=== PATIENT | male | born 1950 | race African-American/Black ===

== ENCOUNTER 2025-03-01 11:37 | Emergency (ER) | payer MEDICARE, SELFPAY ==
--- OUTSIDE RECORDS SUMMARY | 2025-02-19 15:00 | XMS_ITS | Encounter Summary ---
Author Organization [facility] tem Address [id number] [address] [place] [address] Care Team Providers Care Legal Billing Coordinator Name Role Phone Eduardo Zazueta MD Primary Care Provider [phone] Reason for Referral * Diagnostic Imaging (Routine) - Pending Review Specialty Diagnoses / Procedures Referred By Samina heard Referred To Contact Radiology Diagnoses New onset of headaches after age 50 Procedures MR brain without contrast Devendra Caputo DO [address] [facility] [address], [facility] [place] [address] Phone: tel: fax: Referral ID Status Reason Start Date Expiration Date V isits Requested Visits Authorized [id number] Pending Review 02/19/2025 02/19/2026 1 1 Reason for Visit * Reason Comments Headache throat concerns Encounter Details Date Type Department Care Team (Late st Contact Info) Description 02/19/2025 3:00 PM EDT Office Visit [facility] [address] [place] [phone] Devendra Caputo DO [address] [facility], [facility] [address], [facility] [address] [place] [phone] New onset of headaches after age 50 (Primary Dx); Cough, unspecified type; Cervicalgia; Screening for lipid disorders; Primary hypertension; Hyperlipidemia, unspecified hyperlipidemia type; Hyperglycemia Social History Tobacco Use Types Packs/Day Years Used Date Smoking Tobacco: Never Smokeless Tobacco: Never Alcohol Use Standard Drinks/Week Comments No 1 (1 standard drink = 0.6 oz pur e alcohol) [facility] Utilities Answer Date Recorded In the past 12 months has th e electric, gas, oil, or water company threatened to shut off services in your home? No 12/25/2023 PHQ-2 Answer Date Recorded Total Score 0 02/19/2025 PRAPARE - Transportation Answer Date Re corded In the past 12 months, has l ack of transportation kept you from medical appointments or from getting medications? No 12/04 In the past 12 months, has l ack of transportation kept you from meetings, work, or from getting things needed for daily living? No 12/25/2023 Housing Instability Answer Date Recorde d Are you worried or concerned that in the next two months you may not have stable housing that you own, rent or stay in as a part of a household? No 12/25/2023 Childcare Answer Date Recorded Childcare Unknown 12/08/2018 Employment Answer Date Recorded Employment Unknown 12/08/2018 Hunger Screening Answer Date Recorded Within the past 12 months we worried whether our food would run out before we got money to buy more. Never True 02/19/2025 Within the past 12 months th e food we bought just didn't last and we didn't have money to get more. Never True 02/19/2025 Purpose - Life Answer Date Recorded Purpose and direction in life Unknown Sex and Gender Information Value Date Recorded Sex Assigned at Not on file Legal Sex Male 11:30 AM EDT Gender Identity Not on file Sexual Orientation Not on file documented as of this encounter Last Filed Vital Signs Vital Sign Reading Time Taken Comments Blood Pressure 120/80 02/19/2025 3:11 PM EDT Pulse 77 02/19/2025 3:11 PM EDT Temperature 36.3 C (97.4 F) 02/19/2025 3:11 PM EDT Respiratory Rate - - Oxygen Saturation 97% 02/19/2025 3:11 PM EDT Inhaled Oxygen Concentration - - Weight 78.8 kg (173 lb 12.8 oz) 02/19/2025 3:11 PM EDT Height - - Body Mass Index 26.43 08/23/2024 1:28 PM EST documented in this encounter Progress Notes * Devendra Caputo DO - 02/19/2025 3:00 PM EDT Images from the original note were not included. [facility] [address] [place] [address] [place] [address] Patient: Janes Carranza Date of : 1950 Encounter Date: 02/19/2025 Subjective: Chief Complaint Chief Complaint Patient presents with Headache throat concerns History of Present Illness Janes Carranza is a 74 y.o. male, established patient, that presents to the office for headaches and issues with throat. History provided by patient Headache Headache pattern: New onset of headache located in circular pattern around head x 1 month. Providers seen: None Quality: Pounding Location: Describes as hallow pattern around forehead. Pain escalation timing: Headache present daily. Headache does not wake from sleep but present upon waking. Other thinking/mood changes: Intermittent episdoes of dizziness. 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 Other vision changes: At times will have blurred vision in left eye. Bilateral symptoms: Runny nose Other bilateral symptoms: Pressure sensation temples with pressure sensation in either scientologist of both Stomach/GI changes: Nausea Other stomach/GI changes: Occasional nausea with headache Changes in sensation: Trouble hearing Other sensation changes: Denies any ringing in ears, sensitivity to light, smells, and sound Abortive treatments: He states that advil effective as abortive agent for headaches. Sore Throat This is a new problem. Sore throat worse side: Discomfort midline. There has been no fever. Associated symptoms include headaches, neck pain and swollen glands (He states that when he palpates glandsin neck feel hard). Pertinent negatives include no abdominal pain, diarrhea, hoarse voice, shortness of breath, trouble swallowing or vomiting. Associated symptoms comments: Denies any change in bowel habits . Treatments tried: He states that using syrup water or salt water to help with discomfort. Review of Systems Review of Systems Constitutional: Negative for appetite change and unexpected weight change (Denies any unexpected weight changes). HENT: Positive for sore throat. Negative for hoarse voice and trouble swallowing. He describes sensation of feather in throat with cough. He states that cough productive with white and occasional black phlegm in chest. Denies any pain with swallowing or denies trouble swallowing. Respiratory: Negative for shortness of breath. 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 He himself has never smoked. Gastrointestinal: Negative for abdominal pain, diarrhea and vomiting. Genitourinary: Positive for hematuria (He states that he noticed one episode of pinkish red uirne but stopped after he stoped eating beets). Musculoskeletal: Positive for neck pain. Neurological: Positive for headaches. Vital Signs BP 120/80 (BP Site: Left Arm, BP Postition: Sitting) Pulse 77 Temp 36.3 ??C (97.4 ??F) (Oral) Wt 78.8 kg (173 lb 12.8 oz) SpO2 97% BMI 26.43 kg/m?? Physical Exam Physical Exam Vitals reviewed. Constitutional: General: He is not in acute distress. Appearance: He is not ill-appearing or toxic-appearing. HENT: Head: Normocephalic and atraumatic. Salivary Glands: Right salivary gland is not diffusely enlarged or tender. Left salivary gland is not diffusely enlarged or tender. Right Ear: Tympanic membrane and ear canal normal. Tympanic membrane is not bulging. Left Ear: Tympanic membrane and ear canal normal. Tympanic membrane is not bulging. Nose: Right Sinus: No maxillary sinus tenderness or frontal sinus tenderness. Left Sinus: No maxillary sinus tenderness or frontal sinus tenderness. Mouth/Throat: Lips: [place]. No lesions. Pharynx: Oropharynx is clear. Uvula midline. No pharyngeal swelling, oropharyngeal exudate, posterior oropharyngeal erythema, uvula swelling or postnasal drip. Cardiovascular: Rate and Rhythm: Normal rate and regular rhythm. Heart sounds: No murmur heard. Pulmonary: Effort: Pulmonary effort is normal. No accessory muscle usage or respiratory distress. Breath sounds: No decreased breath sounds, wheezing, rhonchi or rales. Abdominal: General: Bowel sounds are normal. There is no distension. Palpations: Abdomen is soft. Tenderness: There is no abdominal tenderness. Musculoskeletal: Cervical back: Neck supple. Decreased range of motion (decreased active range of motion in rotationto the left and right at 45 degrees and in flexion and extension). Right lower leg: No edema. Left lower leg: No edema. Lymphadenopathy: Cervical: No cervical adenopathy. Neurological: Mental Status: He is alert. Cranial Nerves: No facial asymmetry. Past Medical, Family, Surgery and Social History Past Medical History: Diagnosis Date Alcohol abuse Arthritis Back pain Blindness BPH (benign prostatic hypertrophy) Cataract Bilat Drug abuse ([facility]) GERD (gastroesophageal reflux disease) Hypertension Hypocitraturia PONV (postoperative nausea and vomiting) Renal calculus Sinusitis, chronic Solitary kidney Visual impairment wears glasses, blind in one eye Past Surgical History: Procedure Laterality Date COLONOSCOPY N/A 10/06/2018 Performed by Frank Gipson MD at [facility] CYST REMOVAL CYSTOSCOPY HOLMIUM LASER URETEROSCOPY Left 12/01/2016 Performed by Lavon Sosa MD at [facility] CYSTOSCOPY REMOVAL STENT Left 12/15/2016 Performed by Lavon Sosa MD at [facility] NECK SURGERY Cysts removed PHACO KELMAN I IMPLANT INTRAOCULAR LENS Left 04/21/2017 Performed by Preeti Porter MD at [facility] TONSILLECTOMY With adenoids WRIST SURGERY cysts removed Family History Problem Relation Age of Onset Kidney disease Mother Diabetes Mother Aneurysm Father Stroke Father Social History Socioeconomic History Marital status: Single Spouse name: Not on file Number of children: Not on file Years of education: Not on file Highest education level: Not on file Occupational History Not on file Tobacco Use Smoking status: Never Smokeless tobacco: Never Vaping Use Vaping status: Never Used Substance and Sexual Activity Alcohol use: No Alcohol/week: 1.0 - 2.0 standard drink of alcohol Types: 1 - 2 Cans of beer per week Drug use: Not Currently Types: Cocaine Comment: LAST USE 08/27/17 2100 Sexual activity: Defer Other Topics Concern Caffeine Use Yes Social History Narrative Not on file Social Drivers of Health Financial Resource Strain: Not on file Food Insecurity: No Food Insecurity (02/19/2025) Hunger Screening Food Insecurity - Worry: Never True Food Insecurity - Inability: Never True Transportation Needs: No Transportation Needs (12/25/2023) PRAPARE - Transportation Lack of Transportation (Medical): No Lack of Transportation (Non-Medical): No Physical Activity: Not on file Stress: Not on file Social Connections: Not on file Interpersonal Safety: Not At Risk (12/25/2023) Humiliation, Afraid, Rape, and Kick questionnaire Fear of Current or Ex-Partner: No Emotionally Abused: No Physically Abused: No Sexually Abused: No Housing Instability: Low Risk (12/25/2023) Housing Instability Housing Instability: No Allergies and Current Medications Allergies Allergen Reactions No Known Drug Allergies Current Outpatient Medications on File Prior to Visit Medication Sig carbamide peroxide (DEBROX) 6.5 % otic solution Administer 10 drops to the right ear in the morningand 10 drops before bedtime. carvediloL (COREG) 3.125 mg tablet Take 1 tablet (3.125 mg total) by mouth in the morning and 1 tablet (3.125 mg total) before bedtime. clotrimazole (LOTRIMIN) 1 % cream Apply 1 Application topically in the morning and 1 Application before bedtime. finasteride (PROSCAR) 5 mg tablet Take 1 tablet (5 mg total) by mouth in the morning. glucosamine-chondroitin 500-400 mg tablet Take 1 tablet by mouth in the morning and at bedtime. hydrOXYzine (ATARAX) 25 mg tablet Take 1 tablet (25 mg total) by mouth 3 (three) times a day as needed for anxiety. ibuprofen (MOTRIN) 600 mg tablet Take 1 tablet (600 mg total) by mouth every 6 (six) hours as needed for pain. meloxicam (MOBIC) 15 mg tablet Take 1 tablet (15 mg total) by mouth in the morning. petrolat,wht/min oil/sod chl (DRY EYES OPHT) Instill to eye. propylene glycol (SYSTANE BALANCE OPHT) Instill to eye in the morning and before bedtime. tamsulosin (FLOMAX) 0.4 mg capsule TAKE ONE CAPSULE BY MOUTH ONCE NIGHTLY tiZANidine (ZANAFLEX) 4 mg tablet Take 1 tablet (4 mg total) by mouth every 6 (six) hours as neededfor muscle spasms. No current facility-administered medications on file prior to visit. Labs and Imaging Lab Results Component Value Date WBC 7.8 02/18/2024 HGB 12.5 (L) 02/18/2024 HCT 37.1 (L) 02/18/2024 PLT 194 02/18/2024 CHOL 152 08/27/2021 TRIG 67 08/27/2021 HDL 58 08/27/2021 ALT 17 02/18/2024 AST 19 02/18/2024 K 3.7 02/18/2024 CL 108 02/18/2024 CREATININE 1.55 (H) 02/18/2024 BUN 19 02/18/2024 CO2 27 02/18/2024 TSH 2.79 02/18/2024 PSA 0.92 09/13/2020 INR 1.2 (H) 02/18/2024 HGBA1C 5.6 09/09/2022 MICROALBUR 2.5 (H) 12/01/2017 X-ray abdomen ap 1 view HISTORY: A 73-year-old male with the history of the calculus of the nephrolithiasis. Follow-up examination. TECHNIQUE: Supine abdomen: One view COMPARISON: Comparison is made with prior abdominal radiographs of the 09/07/[address] scan of the abdomen and pelvis of 02/19/2024. FINDINGS: The bowel gas pattern is unremarkable. Both kidneys are obscured by bowel gas shadows andfecal material. No abnormal calcific density seen overlying the kidneys. There are multiple calcific densities in the pelvis bilaterally suggestive of phleboliths. There is no large soft tissue mass. There are degenerative changes in thoracolumbar spine with mild scoliosis. Both hip joints are intact. IMPRESSION: * No calcific calculi are seen in KUB region. There are phleboliths in the pelvis bilaterally. * Nonobstructive bowel gas pattern with significant amount of feces. Finalized by Leander Travis MD on 09/07/2024 6:43 PM Assessment/Plan: 1. New onset of headaches after age 50 - MR brain without contrast; Future - CBC auto differential; Future - Comprehensive metabolic panel; Future - C-reactive protein; Future 2. Cough, unspecified type - X-ray chest 2 views; Future 3. Cervicalgia - Thyroid profile includes TSH FT4; Future - X-ray spine cervical 4 or 5 views; Future 4. Screening for lipid disorders - Lipid panel; Future 5. Primary hypertension - Lipid panel; Future 6. Hyperlipidemia, unspecified hyperlipidemia type - Lipid panel; Future 7. Hyperglycemia - Hemoglobin A1c; Future Essential hypertension Hypertension is controlled and patient tolerating medications. Continue with carvedilol 3.125 mg 1 tablet twice daily for blood pressure control. Ordered comprehensive metabolic panel to monitor electrolytes and kidney function. Cervicalgia Ordered x-ray of cervical spine to evaluate for degree of dysfunction of the cervical spine. Continue with meloxicam 15 mg daily HLD (hyperlipidemia) Lipid abnormalities ordered to evaluate for coronary artery disease prevention Cough Order chest x-ray to evaluate for causes of cough New onset of headaches after age 50 Due to new onset of headache after the age of 48 ordered MRI brain without contrast to rule out mass as cause for headache. Ordered lab work including CBC with diff and C-reactive protein to rule outinflammatory cause for headache and comprehensive metabolic panel to rule out metabolic causes for headache. Follow-up: 2 to 3 weeks new onset headache follow-up - Devendra Caputo DO 02/24/25 10:31 PM documented in this encounter Miscellaneous Notes * Assessment & Plan Note - Devendra Caputo DO - 02/24/2025 10:31 PM EDT Associated Problem(s): New onset of headaches after age 50 Due to new onset of headache after the age of 48 ordered MRI brain without contrast to rule out mass as cause for headache. Ordered lab work including CBC with diff and C-reactive protein to rule outinflammatory cause for headache and comprehensive metabolic panel to rule out metabolic causes for headache. * Assessment & Plan Note - Devendra Caputo DO - 02/24/2025 10:30 PM EDT Associated Problem(s): Cough Order chest x-ray to evaluate for causes of cough * Assessment & Plan Note - Devendra Caputo DO - 02/24/2025 10:29 PM EDT Associated Problem(s): HLD (hyperlipidemia) Lipid abnormalities ordered to evaluate for coronary artery disease prevention * Assessment & Plan Note - Devendra Caputo DO - 02/24/2025 10:28 PM EDT Associated Problem(s): Cervicalgia Ordered x-ray of cervical spine to evaluate for degree of dysfunction of the cervical spine. Continue with meloxicam 15 mg daily * Assessment & Plan Note - Devendra Caputo DO - 02/24/2025 10:23 PM EDT Associated Problem(s): Essential hypertension Hypertension is controlled and patient tolerating medications. Continue with carvedilol 3.125 mg 1 tablet twice daily for blood pressure control. Ordered comprehensive metabolic panel to monitor electrolytes and kidney function. documented in this encounter Plan of Treatment Upcoming Encounters Date Type Department Care Team (Late st Contact Info) Description 03/08/2025 9:00 AM EDT Office Visit [facility] [address] [place] [phone] Devendra Caputo DO [address] [place] [address], [facility], [place], [place] [phone] 03/15/2025 5:15 PM EDT Appointment [facility] - MRI Imaging [address] [place] [phone] 05/17/2025 2:30 PM EST Office Visit [facility] [address] [place] [phone] Eduardo Zazueta MD [address] [place] [phone] Scheduled Orders Name Type Priority Associated Diagnoses Orde r Schedule MR brain without contrast Imaging Routine New onset of headaches after age 50 Expected: 02/19/2025, Expires: 02/19/2026 CBC auto differential Lab Routine New onset of headaches after age 50 1 Occurrences starting 02/19/2025 until 02/19/2026 Comprehensive metabolic panel Lab Routine New onset of headaches after age 50 1 Occurrences starting 02/19/2025 until 02/19/2026 C-reactive protein Lab Routine New onset of headaches after age 50 1 Occurrences starting 02/19/2025 until 02/19/2026 X-ray chest 2 views Imaging Routine Cough, unspecified type Expected: 02/19/2025, Expires: 02/19/2026 Thyroid profile includes TSH FT4 Lab Routine Cervicalgia 1 Occurrences starting 02/19/2025 until 02/19/2026 X-ray spine cervical 4 or 5 views Imaging Routine Cervicalgia Expected: 02/19/2025, Expires: 02/19/2026 Hemoglobin A1c Lab Routine Hyperglycemia 1 Occurrences starting 02/19/2025 until 02/19/2026 Lipid panel Lab Routine Screening for lipid disorders Primary hypertension Hyperlipidemia, unspecified hyperlipidemia type 1 Occurrences starting 02/19/2025 until 02/19/2026 documented as of this encounter Visit Diagnoses Diagnosis New onset of headaches after age 50- Primary Cough, unspecified type Cervicalgia Screening for lipid disorders Primary hypertension Unspecified essential hypertension Hyperlipidemia, unspecified hyperlipidemia type Hyperglycemia Other abnormal glucose documented in this encounter Additional Health Concerns Assessment Noted Time PHQ-9 Depression Total Score: 0 02/20/20 25 3:08 PM EDT A Body Mass Index follow-up plan has been documented for the patient 06/08/2019 1:37 PM EST documented as of this encounter Care Teams Legal Billing Coordinator Relationship Specialty Start Date End Date Eduardo Zazueta MD [address] [facility] [place] [address] PCP - General Internal Medicine 12/25/23 documented as of this encounter
[2025-03-01 11:51] VITALS: BP 140/84; PULSE 65; TEMP 36.3; O2SAT 96; BMI 26.6
--- OUTSIDE RECORDS SUMMARY | 2025-03-01 11:53 | XMS_ITS | Encounter Summary ---
Author Organization [facility] Address [id number] [address] [place] [address] Care Team Providers Care Product Manager E Commerce Name Role Phone Eduardo Zazueta MD Primary Care Provider [phone] Encounter Details Date Type Department Care Team (Late Contact Info) Description 03/31/2023 Telephone [facility] [address] [place] [phone] Amy Mendenhall PA [address] [place] [phone] Social History Tobacco Use Types Packs/Day Years Used Date Smoking Tobacco: Never Smokeless Tobacco: Never Alcohol Use Standard Drinks/Week Comments No 1 (1 standard drink = 0.6 oz pur e alcohol) PHQ-2 Answer Date Recorded Total Score 0 06/08/2019 Childcare Answer Date Recorded Childcare Unknown 12/08/2018 Employment Answer Date Recorded Employment Unknown 12/08/2018 Purpose - Life Answer Date Recorded Purpose and direction in life Unknown Sex and Gender Information Value Date Recorded Sex Assigned at Not on file Legal Sex Male 11:30 AM EDT Gender Identity Not on file Sexual Orientation Not on file documented as of this encounter Miscellaneous Notes * Telephone Encounter - RENÉE Burrell - 03/31/2023 5:58 PM EDT He was a no show. Please call to reschedule documented in this encounter Plan of Treatment Upcoming Encounters Date Type Department Care Team (Late st Contact Info) Description 03/08/2025 9:00 AM EDT Office Visit [facility] [address] [place] [address] [place] [phone] Devendra Caputo, [address] [place] [address] 03/15/2025 5:15 PM EDT Appointment [facility] - MRI Imaging [address] [place] [phone] 05/17/2025 2:30 PM EST Office Visit [facility] [address] [facility] [phone] Eduardo Zazueta MD [address] [place] [address] documented as of this encounter Visit Diagnoses Not on filedocumented in this encounter Additional Health Concerns Assessment Noted Time PHQ-9 Depression Total Score: 0 06/08/20 19 1:00 PM EST A Body Mass Index follow-up plan has been documented for the patient 06/08/2019 1:37 PM EST documented as of this encounter Care Teams Product Manager E Commerce Relationship Specialty Start Date End Date Eduardo Zazueta MD [address] [place] [address] PCP - General Internal Medicine 12/25/23 documented as of this encounter
--- OUTSIDE RECORDS SUMMARY | 2025-03-01 11:53 | XMS_ITS | Encounter Summary ---
Author Organization [facility] tem Address [id number] [address] [place] [address] Care Team Providers Care Certified Master Safe Technician Name Role Phone Eduardo Zazueta MD Primary Care Provider [phone] Reason for Visit * Reason Onset Date Comments Med Refill 11/09/2018 Encounter Details Date Type Department Care Team (Late st Contact Info) Description 11/09/2018 Refill [facility] [address] [place] [address] [place] [address] Dulce Brown CMA Calculus of kidney and ureter Social History Tobacco Use Types Packs/Day Years Used Date Smoking Tobacco: Never Smokeless Tobacco: Never Alcohol Use Standard Drinks/Week Comments No 1 (1 standard drink = 0.6 oz pur e alcohol) Every 6 months PHQ-2 Answer Date Recorded PHQ-2 Score 1 07/12/2018 Childcare Answer Date Recorded Childcare Unknown 09/24/2018 Employment Answer Date Recorded Employment Unknown 09/24/2018 Sex and Gender Information Value Date Recorded Sex Assigned at Not on file Legal Sex Male 11:30 AM EDT Gender Identity Not on file Sexual Orientation Not on file documented as of this encounter Plan of Treatment Upcoming Encounters Date Type Department Care Team (Late st Contact Info) Description 03/08/2025 9:00 AM EDT Office Visit [facility] [address] [place] [place] [address] Devendra Caputo, DO [address] [facility], [address], [place] [address] 03/15/2025 5:15 PM EDT Appointment [facility] - MRI Imaging [address] [place] [address] 05/17/2025 2:30 PM EST Office Visit [facility] [address] [facility] [place] [place] [phone] Eduardo Zazueta MD [address] [facility] [facility] [place], [place] [id number] documented as of this encounter Visit Diagnoses Diagnosis Calculus of kidney and ureter Calculus of kidney documented in this encounter Additional Health Concerns Infection Onset Date Last Indicated Resolved Time COVID-19 Rule-Out 01/17/2022 01/17/2022 01/17/2022 3:46 PM EDT COVID-19 Positive 01/17/2022 01/17/2022 02/07/2022 11:12 PM EDT Assessment Noted Time PHQ-9 Depression Total Score: 1 03/22/20 18 3:00 PM EDT documented as of this encounter Care Teams Certified Master Safe Technician Relationship Specialty Start Date End Date Eduardo Zazueta MD [address] [facility] [address] [place], [place] [phone] PCP - General Internal Medicine 12/25/23 documented as of this encounter
--- OUTSIDE RECORDS SUMMARY | 2025-03-01 11:53 | XMS_ITS | Encounter Summary ---
Author Organization [facility] tem Address [id number] [address] [place] [address] Care Team Providers Care Classroom Aide Name Role Phone Eduardo Zazueta MD Primary Care Provider [phone] Reason for Visit * Reason Onset Date Comments Med Refill 02/23/2019 Encounter Details Date Type Department Care Team (Late st Contact Info) Description 02/23/2019 Refill [facility] [address] [place] [phone] Samantha Sun, [facility] [address] [place] [address] [address] [place] [address] Chronic fatigue Social History Tobacco Use Types Packs/Day Years Used Date Smoking Tobacco: Never Smokeless Tobacco: Never Alcohol Use Standard Drinks/Week Comments No 1 (1 standard drink = 0.6 oz pur e alcohol) Every 6 months PHQ-2 Answer Date Recorded PHQ-2 Score 1 12/12/2018 Childcare Answer Date Recorded Childcare Unknown 12/08/2018 Employment Answer Date Recorded Employment Unknown 12/08/2018 Sex and Gender Information Value Date Recorded Sex Assigned at Not on file Legal Sex Male 11:30 AM EDT Gender Identity Not on file Sexual Orientation Not on file documented as of this encounter Miscellaneous Notes * Telephone Encounter - Cyndi Leija CMA - 02/23/2019 1:10 PM EDT FYI-Patient complains of low back pain, says it feels like a kidney stone, told him to call his urologist Dr Sosa because he wants seen tomorrow, patient agreed. Cyndi Leija CMA 03/02/19 1412 documented in this encounter Plan of Treatment Upcoming Encounters Date Type Department Care Team (Late st Contact Info) Description 03/08/2025 9:00 AM EDT Office Visit [facility] [address] [place] [address] [place] [phone] Devendra Caputo, DO [address], [address] [place] [address] 03/15/2025 5:15 PM EDT Appointment [facility] - MRI Imaging [address] [place] [address] 05/17/2025 2:30 PM EST Office Visit [facility] [address] [place] [phone] Eduardo Zazueta MD [address] [facility] [address] [facility] [place] [address] documented as of this encounter Visit Diagnoses Diagnosis Chronic fatigue Other malaise and fatigue documented in this encounter Additional Health Concerns Infection Onset Date Last Indicated Resolved Time COVID-19 Rule-Out 01/17/2022 01/17/2022 01/17/2022 3:46 PM EDT COVID-19 Positive 01/17/2022 01/17/2022 02/07/2022 11:12 PM EDT Assessment Noted Time PHQ-9 Depression Total Score: 1 03/22/20 18 3:00 PM EDT documented as of this encounter Care Teams Classroom Aide Relationship Specialty Start Date End Date Eduardo Zazueta MD [address] [facility] [address] [place] [address] [facility] [place] [phone] PCP - General Internal Medicine 12/25/23 documented as of this encounter
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
--- OUTSIDE RECORDS SUMMARY | 2025-03-01 11:54 | XMS_ITS | Encounter Summary ---
Author Organization [facility] tem Address [id number] [address] [place] [address] Care Team Providers Care [employer] Name Role Phone Eduardo Zazueta MD Primary Care Provider [phone] Reason for Visit * Reason Onset Date Comments Med Refill 01/11/2019 Encounter Details Date Type Department Care Team (Late st Contact Info) Description 01/11/2019 Refill [facility] [address] [place] [address] [place] [address] Cyndi Leija CMA Essential hypertension Social History Tobacco Use Types Packs/Day Years [...] Encounters Date Type Department Care Team (Late Contact Info) Description 03/08/2025 9:00 AM EDT [facility] [address] [facility] [place] [address] Devendra Caputo, DO [address] [facility] [address] [place] [address] 03/15/2025 5:15 PM EDT Appointment [facility] [address] [place] [address] 05/17/2025 2:30 PM EST Office Visit [facility] [address] [place] [address] Eduardo Zazueta MD [address] [facility] [place] [id number] documented as of this encounter Visit Diagnoses Diagnosis Essential hypertension Unspecified essential hypertension documented in this encounter Additional Health Concerns Infection Onset Date Last Indicated Resolved Time COVID-19 Rule-Out 01/17/2022 01/17/2022 01/17/2022 3:46 PM EDT COVID-19 Positive 01/17/2022 01/17/2022 02/07/2022 11:12 PM EDT Assessment Noted Time PHQ-9 Depression Total Score: 1 03/22/20 18 3:00 PM EDT documented as of this encounter Care Teams [employer] Relationship Specialty Start Date End Date Eduardo Zazueta MD [address] [place] [address] PCP - General Internal Medicine 12/25/23 documented as of this encounter
--- OUTSIDE RECORDS SUMMARY | 2025-03-01 11:54 | XMS_ITS | Encounter Summary ---
Author Organization [employer] Address [facility] [id number] [address] [place] [address] Care Team Providers Care Branch Associate Name Role Phone Eduardo Zazueta MD Primary Care Provider [phone] Reason for Visit * Reason Comments Med Refill Encounter Details Date Type Department Care Team (Late st Contact Info) Description 06/10/2019 Refill [facility] [address] [place] [address] [place] [address] Samantha Sun, AURICULAR DETOXIFICATION SPECIALIST-[facility] [address] [place] [id number] Calculus of kidney and ureter Social History Tobacco Use Types Packs/Day Years Used Date Smoking Tobacco: Never Smokeless Tobacco: Never Alcohol Use Standard Drinks/Week Comments No 1 (1 standard drink = 0.6 oz pur e alcohol) Every 6 months PHQ-2 Answer Date Recorded Total Score 0 [...] Office Visit [facility] [address] [place] [address] [place] [address] Devendra Caputo, DO 605 [facility], [address], [place] [address] 03/15/2025 5:15 PM EDT Appointment [facility] - MRI Imaging [address] [place] [address] 05/17/2025 2:30 PM EST Office Visit [facility] [address] [facility] [place] [address] Eduardo Zazueta MD 605 [facility] [place] [address] documented as of this encounter Visit Diagnoses Diagnosis Calculus of kidney and ureter Calculus of kidney documented in this encounter Additional Health Concerns Infection Onset Date Last Indicated Resolved Time COVID-19 Rule-Out 01/17/2022 01/17/2022 01/17/2022 3:46 PM EDT COVID-19 Positive 01/17/2022 01/17/2022 02/07/2022 11:12 PM EDT Assessment Noted Time PHQ-9 Depression Total Score: 0 06/08/20 1:00 PM EST A Body Mass Index follow-up plan has been documented for the patient 06/08/2019 1:37 PM EST documented as of this encounter Care Teams Branch Associate Relationship Specialty Start Date End Date Eduardo Zazueta MD 605 [facility] [place] [address] PCP - General Internal Medicine 12/25/23 documented as of this encounter
--- OUTSIDE RECORDS SUMMARY | 2025-03-01 11:54 | XMS_ITS | Encounter Summary ---
Author Organization [employer] Address [facility][id number] [address] [place] [address] Care Team Providers Care Director Technical Name Role Phone Eduardo Zazueta MD Primary Care Provider [phone] Reason for Visit * Reason Comments Med Refill Encounter Details Date Type Department Care Team (Late st Contact Info) Description 01/05/2019 Refill [facility] [address] [place] [address] [place] [address] Samantha Sun, WOOD FORM BUILDER-[employer] [address] [facility] [address] [place] [id number] Essential hypertension Social History Tobacco Use Types [...] Office Visit [facility] [address] [place] [address] [place] [address] Devendra Caputo, 605 [facility], [address], [place] [address] 03/15/2025 5:15 PM EDT Appointment [facility] - MRI Imaging [address] [facility] [address] 05/17/2025 2:30 PM EST Office Visit [facility] Family [facility] [address] [place] [address] Eduardo Zazueta MD 605 [facility] Kathy [place], [place] [phone] documented as of this encounter Visit Diagnoses Diagnosis Essential hypertension Unspecified essential hypertension documented in this encounter Additional Health Concerns Infection Onset Date Last Indicated Resolved Time COVID-19 Rule-Out 01/17/2022 01/17/2022 01/17/2022 3:46 PM EDT COVID-19 Positive 01/17/2022 01/17/2022 02/07/2022 11:12 PM EDT Assessment Noted Time PHQ-9 Depression Total Score: 1 03/22/20 18 3:00 PM EDT documented as of this encounter Care Teams Director Technical Relationship Specialty Start Date End Date Eduardo Zazueta MD 605 [facility]NA[facility]ice[place] [place], [place] [phone] PCP - General Internal Medicine 12/25/23 documented as of this encounter
--- OUTSIDE RECORDS SUMMARY | 2025-03-01 11:54 | XMS_ITS | Encounter Summary ---
Author Organization [employer] Address [facility] [place][id number] [address] [place] [address] Care Team Providers Care Renewable Energy Trader Name Role Phone Eduardo Zazueta MD Primary Care Provider [phone] Reason for Visit * Reason Comments Med Refill Encounter Details Date Type Department Care Team (Late st Contact Info) Description 07/12/2019 Refill [facility] [address] [place] [address] [place] [address] Samantha Sun, REAL ESTATE PORTFOLIO MANAGER-[facility] [address] [facility] [address] [place] [id number] Essential hypertension Social History Tobacco Use Types [...] Office Visit [facility] [address] [place] [address] [place] [address] Devendra Caputo DO [address] [place] [address], [address], [place] [address] 03/15/2025 5:15 PM EDT Appointment [facility] - MRI Imaging [address] [facility] [place] [address] 05/17/2025 2:30 PM EST Office Visit [facility] [address] [place] [address] Eduardo Zazueta MD 605 [facility] [address] documented as of this encounter Visit Diagnoses [...] documented as of this encounter Care Teams Renewable Energy Trader Relationship Specialty Start Date End Date Eduardo Zazueta MD 605 [facility] [place] [address] PCP - General Internal Medicine 12/25/23 documented as of this encounter
--- OUTSIDE RECORDS SUMMARY | 2025-03-01 11:54 | XMS_ITS | Clinical Summary ---
Author Organization [facility] Healthcare Address [address] [place] [address] Care Team Providers Care Clinical Research Monitor Name Role Phone Unavailable Primary Care Provider Unavailabl e Social History Tobacco Use Types Packs/Day Years Used Date Smoking Tobacco: Never Assessed Sex and Gender Information Value Date Recorded Sex Assigned at Not on file Legal Sex Male 7:39 PM EDT Gender Identity Not on file Sexual Orientation Not on file Last Filed Vital Signs Vital Sign Reading Time Taken Comments Blood Pressure 125/80 08/29/2019 12:00 PM EST Pulse - - Temperature - - Respiratory Rate - - Oxygen Saturation - - Inhaled Oxygen Concentration - - Weight 77.1 kg (170 lb) 07/16/2022 12:00 PM EST Height 172.7 cm (5' 8 ) 07/16/2022 12:00 PM EST Body Mass Index 25.85 07/16/2022 12:00 PM EST Plan of Treatment Health Maintenance Due Date Last Done Comments Influenza Vaccine (#1) 2025 4, 05/21/2022, 05/27/2021, Additional history exists FIT Discontinued 12/01/2017 Colonoscopy Discontinued 10/06/2018 Colorectal Cancer Screening Discontinued Pneumococcal Vaccine: 65+ Years Completed 06/08/2019, 04/21/2018, 02/24/2018 CT Colonography Discontinued FIT-DNA Discontinued FOBT Discontinued Sigmoidoscopy Discontinued Procedures Procedure Name Priority Date/Time Associated Diagnosis Comments COLONOSCOPY Routine 10/06/2018 12:00 PM EDT from Last 3 Months or Most Recently Relevant to Health Maintenance Results * Colonoscopy (10/06/2018 12:00 PM EDT) Anatomical Region Laterality Modality Endoscopy 10/06/2018 12:0 0 PM EDT Narrative 10/06/2018 12:00 PM EDT PERFORMED AT [facility] LOCATION:[id number] Procedure Note CONVERSION, GENERIC - 11/18/2022 PERFORMED AT [facility] LOCATION:[id number] us Frank Gipson MD ENDOSCOPY PROCEDURE ORDERABL ES Final Result from Last 3 Months or Most Recently Relevant to Health Maintenance Insurance [employer] MEDICARE [employer]VANTAGE
--- OUTSIDE RECORDS SUMMARY | 2025-03-01 11:55 | XMS_ITS | Encounter Summary ---
Author Organization [employer] [facility] tem Address [facility] [id number] [address] [place] [address] Care Team Providers Care Kaiako Kura Tuarua Name Role Phone Eduardo Zazueta MD Primary Care Provider Encounter Details Date Type Department Care Team (Late Contact Info) Description 11/08/2023 Telephone [facility] [address] [place] [address] [address] Annette Villagomez CMA Social History Tobacco Use Types Packs/Day Years [...] got money to buy more. Never True 09/07/2023 Within the past 12 months th e food we bought just didn't last and we didn't have money to get more. Never True 09/07/2023 Purpose - Life Answer Date Recorded Purpose [...] Visit [facility] [address] [place] [address] Devendra Caputo DO 605 [facility], [address], [place] [address] 03/15/2025 5:15 PM EDT Appointment [facility] - MRI Imaging [address] [place] [address] 05/17/2025 2:30 PM EST Office Visit [facility] [address] [place] [address] [place] [address] Eduardo Zazueta MD 605 [place], [place] [phone] documented as of this encounter Visit Diagnoses Not on filedocumented in this encounter Additional Health Concerns Assessment Noted Time PHQ-9 Depression Total Score: 0 06/08/20 19 1:00 PM EST A Body Mass Index follow-up plan has been documented for the patient 06/08/2019 1:37 PM EST documented as of this encounter Care Teams Kaiako Kura Tuarua Relationship Specialty Start Date End Date Eduardo Zazueta MD [address] [place] [phone] PCP - General Internal Medicine 12/25/23 documented as of this encounter
--- OUTSIDE RECORDS SUMMARY | 2025-03-01 11:55 | XMS_ITS | Encounter Summary ---
Author Organization [employer] Address [facility]-[id number] [address] [place] [address] Care Team Providers Care Rehabilitator Name Role Phone Eduardo Zazueta MD Primary Care Provider [phone] Reason for Visit * Reason Onset Date Comments Med Refill 12/27/2019 Encounter Details Date Type Department Care Team (Late st Contact Info) Description 12/27/2019 Refill [facility] [address] [place] [address] Teresa Gandhi CMA Essential hypertension; Calculus of kidney and ureter Social History [...] Office Visit [facility] [address] [place] [address] Devendra Caputo, DO 605 [facility], [facility] B, [place] [phone] 03/15/2025 5:15 PM EDT Appointment [facility] - MRI Imaging [address] [place] [address] 05/17/2025 2:30 PM EST Office Visit [facility] [address] [facility] [address] Eduardo Zazueta MD 605 [place], [place] [phone] documented as of this encounter Visit Diagnoses Diagnosis Essential hypertension Unspecified essential hypertension Calculus of kidney and ureter Calculus of [...] documented as of this encounter Care Teams Rehabilitator Relationship Specialty Start Date End Date Eduardo Zazueta MD 605 [place], [place] [phone] PCP - General Internal Medicine 12/25/23 documented as of this encounter
--- OUTSIDE RECORDS SUMMARY | 2025-03-01 11:55 | XMS_ITS | Encounter Summary ---
Author Organization [employer] Address [facility][id number] [address] [place] [address] Care Team Providers Care Chiropractor Sole Practitioner Name Role Phone Eduardo Zazueta MD Primary Care Provider [phone] Reason for Visit * Reason Comments Med Refill Encounter Details Date Type Department Care Team (Late st Contact Info) Description 07/25/2019 Refill [facility] [address] [place] [address] [place] [address] Samantha Sun, ASSEMBLER BODY-[facility] [address] [place] [id number] Chronic fatigue Social History Tobacco Use Types [...] Office Visit [facility] [address] [place] [address] [place] [address] Devendra Caputo DO [address] [place] [address], [address], [place] [address] 03/15/2025 5:15 PM EDT Appointment [facility] - MRI Imaging [address] [place] [address] 05/17/2025 2:30 PM EST Office Visit [facility] [address] [place] [address] Eduardo Zazueta MD 605 [facility], [place] [phone] documented as of this encounter Visit Diagnoses [...] documented as of this encounter Care Teams Chiropractor Sole Practitioner Relationship Specialty Start Date End Date Eduardo Zazueta MD 605 [facility] Kathy [place], [place] [phone] PCP - General Internal Medicine 12/25/23 documented as of this encounter
--- OUTSIDE RECORDS SUMMARY | 2025-03-01 11:55 | XMS_ITS | Encounter Summary ---
Author Organization [facility] Address [facility]-[id number] [address] [place] [address] Care Team Providers Care Fishing Instructor Name Role Phone Eduardo Zazueta MD Primary Care Provider [phone] Reason for Visit * Reason Comments Med Refill Encounter Details Date Type Department Care Team ([facility] st Contact Info) Description 05/02/2020 Refill [facility] [address] [place] [phone] Samantha Sun APRN-CNP [address] [facility] [address] [place] [phone] Essential hypertension Social History Tobacco Use Types [...] on file Sexual Orientation Not on file COVID-19 Exposure Response Date Recorded In the last month, have you been in contact with someone who was confirmed or suspected to have Coronavirus / COVID-19? No / Unsure 04/17/2020 10:00 AM EDT documented as of this encounter Miscellaneous Notes * Telephone Encounter - FAY Jauregui - 05/02/2020 6:23 AM EDT Patient needs an appointment for additional refills documented in this encounter Plan of Treatment Upcoming Encounters Date Type Department Care Team (Late st Contact Info) Description 03/08/2025 9:00 AM EDT Office Visit [facility] [address] [place] [phone] Devendra Caputo, DO 605 [facility], [address], [place] [address] 03/15/2025 5:15 PM EDT Appointment [facility] - MRI Imaging [address] [place] [address] 05/17/2025 2:30 PM EST [facility] [address] [place] [phone] Eduardo Zazueta MD 605 [place] [address] documented as of this encounter Visit Diagnoses [...] documented as of this encounter Care Teams Fishing Instructor Relationship Specialty Start Date End Date Eduardo Zazueta MD [address] [place] [address] PCP - General Internal Medicine 12/25/23 documented as of this encounter
--- OUTSIDE RECORDS SUMMARY | 2025-03-01 11:55 | XMS_ITS | Encounter Summary ---
Author Organization [employer] Address [id number] [address] [place] [address] Care Team Providers Care Otter Trawler Boatswain Name Role Phone Eduardo Zazueta MD Primary Care Provider [phone] Reason for Visit * Reason Onset Date Comments Med Refill 11/08/2023 Encounter Details Date Type Department Care Team (Late Contact Info) Description 11/08/2023 Refill [facility] [address] [place] [address] Cordelia Haddad CMA Social History Tobacco Use Types Packs/Day [...] Visit [facility] [address] [place] [address] Devendra Caputo, 605 [facility], [address], [facility] [place] [address] 03/15/2025 5:[address] [facility] - MRI Imaging [address] [place] [address] 05/17/2025 2:30 PM EST Office Visit [facility] Medicine [address] [place] [address], [place] [phone] Eduardo Zazueta MD [address] [place] [phone] documented as of this encounter Visit Diagnoses Not on filedocumented in this encounter Additional Health Concerns Assessment Noted Time PHQ-9 Depression Total Score: 0 06/08/20 19 1:00 PM EST A Body Mass Index follow-up plan has been documented for the patient 06/08/2019 1:37 PM EST documented as of this encounter Care Teams Otter Trawler Boatswain Relationship Specialty Start Date End Date Eduardo Zazueta MD [address] [place] [phone] PCP - General Internal Medicine 12/25/23 documented as of this encounter
--- OUTSIDE RECORDS SUMMARY | 2025-03-01 11:55 | XMS_ITS | Encounter Summary ---
Author Organization [employer] Address [facility] [place][id number] [address] [place] [address] Care Team Providers Care Machine Welder Name Role Phone Eduardo Zazueta MD Primary Care Provider [phone] Reason for Visit * Reason Comments Med Refill Encounter Details Date Type Department Care Team (Late st Contact Info) Description 10/10/2019 Refill [facility] [address] [place] [address] Samantha Sun, ELECTRICAL INTEGRATOR-[facility] [address] [place] [address] Essential hypertension Social History Tobacco Use Types [...] have Coronavirus / COVID-19? No / Unsure 09/27/2019 8:13 AM EDT documented as of this encounter Plan of Treatment Upcoming Encounters Date Type Department Care Team ([facility] Contact Info) Description 03/08/2025 9:00 AM EDT Office Visit [facility] [address] [place] [address] [facility] [place] [place] [address] Devendra Caputo, DO 605 [facility], [address], [facility] [place] [address] 03/15/2025 5:15 PM EDT Appointment [facility] - MRI Imaging [address] [place] [address] 05/17/2025 2:30 PM EST Office Visit [facility] Family [facility] [address] [place] [phone] Eduardo Zazueta MD [address] [place] [phone] documented as of this encounter Visit Diagnoses [...] documented as of this encounter Care Teams Machine Welder Relationship Specialty Start Date End Date Eduardo Zazueta MD [address] [place] [address] [facility] [place] [address] PCP - General Internal Medicine 12/25/23 documented as of this encounter
--- OUTSIDE RECORDS SUMMARY | 2025-03-01 11:55 | XMS_ITS | Encounter Summary ---
Author Organization [employer] Address [id number] [address] [place] [address] Care Team Providers Care Drywall Metal Stud Worker Name Role Phone Eduardo Zazueta MD Primary Care Provider [phone] Encounter Details Date Type Department Care Team (Late st Contact Info) Description 05/16/2024 Telephone [employer] [facility] [address] [place] [address] Annette Villagomez CMA Social History Tobacco Use Types Packs/Day Years Used Date Smoking Tobacco: Never Smokeless Tobacco: Never Alcohol Use Standard Drinks/Week Comments No 1 (1 standard drink = 0.6 oz pur e alcohol) [facility] Utilities Answer Date Recorded In the past 12 months has [employer] electric, gas, oil, or water company threatened to shut off services in your home? No 12/25/2023 PHQ-2 Answer Date Recorded Total Score 2 04/26/2024 PRAPARE - Transportation Answer Date Re corded [...] got money to buy more. Never True 04/26/2024 Within the past 12 months th e food we bought just didn't last and we didn't have money to get more. Never True 04/26/2024 Purpose - Life Answer Date Recorded Purpose [...] Description 03/08/2025 9:00 AM EDT Office Visit [facility] Family Medicine [address] [place] [phone] Devendra Caputo, 605 [facility], [address] [address] 03/15/2025 5:15 PM EDT Appointment [facility] - MRI Imaging [address] [place] [address] 05/17/2025 2:30 PM EST Office Visit [facility] Medicine [address] [place] [phone] Eduardo Zazueta MD [address] [place] [address] documented as of this encounter Visit Diagnoses Not on filedocumented in this encounter Additional Health Concerns Assessment Noted Time PHQ-9 Depression Total Score: 2 04/26/20 24 1:00 PM EDT A Body Mass Index follow-up plan has been documented for the patient 06/08/2019 1:37 PM EST documented as of this encounter Care Teams Drywall Metal Stud Worker Relationship Specialty Start Date End Date Eduardo Zazueta MD 605 [place] [address] PCP - General Internal Medicine 12/25/23 documented as of this encounter
--- OUTSIDE RECORDS SUMMARY | 2025-03-01 11:55 | XMS_ITS | Encounter Summary ---
Author Organization [employer] tem Address [facility] [id number]-[id number] [address] [place] [address] Care Team Providers Care Ground Systems Engineer Name Role Phone Eduardo Zazueta MD Primary Care Provider [phone] Reason for Visit * Reason Comments Med Refill Encounter Details Date Type Department Care Team (Late st Contact Info) Description 12/28/2019 Refill [facility] [address] [place] [address] [place] [address] Samantha Sun, DIGITAL ARCHIVIST-[facility] [address] [place] [id number] Essential hypertension Social History Tobacco Use Types [...] Office Visit [facility] [address] [place] [address] [place] [address] Devendra Caputo DO [address] [place] [address], [address], [place] [address] 03/15/2025 5:15 PM EDT Appointment [facility] - MRI Imaging [address] [facility] [place] [address] 05/17/2025 2:30 PM EST Office Visit [facility] Family Medicine [address] [place] [address] Eduardo Zazueta MD 605 [facility] [place] [address] documented as of this encounter Visit Diagnoses [...] documented as of this encounter Care Teams Ground Systems Engineer Relationship Specialty Start Date End Date Eduardo Zazueta MD 605 [facility] [place] [address] PCP - General Internal Medicine 12/25/23 documented as of this encounter
--- OUTSIDE RECORDS SUMMARY | 2025-03-01 11:55 | XMS_ITS | Encounter Summary ---
Author Organization [facility] tem Address [facility]-[id number] [address] [place] [address] Care Team Providers Care Computing Tutor Name Role Phone Eduardo Zazueta MD Primary Care Provider [phone] Reason for Visit * Reason Onset Date Comments Med Refill 09/11/2019 Encounter Details Date Type Department Care Team (Late st Contact Info) Description 09/11/2019 Refill [facility] [address] [place] [address] [place] [address] Teresa Gandhi CMA Calculus of kidney and ureter Social [...] 03/08/2025 9:00 AM EDT [facility] [address] [place] [address] Devendra Caputo, DO 605 [facility], [address], [place] [address] 03/15/2025 5:15 PM EDT Appointment [facility] - MRI Imaging [address] [place] [address] 05/17/2025 2:30 PM EST Office Visit [facility] Family [facility] [address] [place] [address] Eduardo Zazueta MD [address] [facility] Kathy [place], [place] [phone] documented as of this encounter Visit Diagnoses [...] documented as of this encounter Care Teams Computing Tutor Relationship Specialty Start Date End Date Eduardo Zazueta MD 605 [facility] Kathy [place], [place] [phone] PCP - General Internal Medicine 12/25/23 documented as of this encounter
--- OUTSIDE RECORDS SUMMARY | 2025-03-01 11:55 | XMS_ITS | Encounter Summary ---
Author Organization [facility] tem Address [facility][id number] [address] [place] [address] Care Team Providers Care Wood Gluer Name Role Phone Eduardo Zazueta MD Primary Care Provider Encounter Details Date Type Department Care Team (Late Contact Info) Description 07/01/2023 Telephone [facility] [address] [place] [place] [address] Hetal Lerner CMA Social History Tobacco Use Types Packs/Day [...] got money to buy more. Never True 05/10/2023 Within the past 12 months th e food we bought just didn't last and we didn't have money to get more. Never True 05/10/2023 Purpose - Life Answer Date Recorded Purpose [...] Visit [facility] [address] [place] [place] [address] Devendra Caputo, [address], [address] [place], [place] [phone] 03/15/2025 5:15 PM EDT Appointment [facility] - MRI Imaging [address] [facility] [place] [address] 05/17/2025 2:30 PM EST Office Visit [facility] Family Medicine [address] [place] [address] [place] [phone] Eduardo Zazueta MD 605 [place], [place] [phone] documented as of this encounter Visit Diagnoses Not on filedocumented in this encounter Additional Health Concerns Assessment Noted Time PHQ-9 Depression Total Score: 0 06/08/20 19 1:00 PM EST A Body Mass Index follow-up plan has been documented for the patient 06/08/2019 1:37 PM EST documented as of this encounter Care Teams Wood Gluer Relationship Specialty Start Date End Date Eduardo Zazueta MD [address] [place] [address] PCP - General Internal Medicine 12/25/23 documented as of this encounter
--- OUTSIDE RECORDS SUMMARY | 2025-03-01 11:56 | XMS_ITS | Encounter Summary ---
Author Organization [employer] tem Address [facility]-[id number] [address] [place] [address] Care Team Providers Care Grievance And Appeals Specialist Name Role Phone Eduardo Zazueta MD Primary Care Provider [phone] Encounter Details Date Type Department Care Team (Late st Contact Info) Description 11/14/2021 Refill [facility] [address] [place] [address] Isabelle Wu CMA Calculus of kidney and ureter Social [...] Exposure Response Date Recorded In the last 10 days, have yo u been in contact with someone who was confirmed or suspected to have Coronavirus/COVID-19? No / Unsure 11/12/2021 2:14 PM EDT documented as of this encounter Miscellaneous Notes * Telephone Encounter - Isabelle Wu CMA - 11/14/2021 10:31 AM EDT Pt needs refills. * Telephone Encounter - FAY Jauregui - 11/14/2021 10:31 AM EDT Patient needs to call MD that ordered medication last as he has not been seen in this office for 1 year. * Telephone Encounter - Isabelle Wu CMA - 11/14/2021 10:31 AM EDT LEFT DETAILED MESSAGE ~[facility] [place] * Telephone Encounter - FAY Kohli - 11/14/2021 10:31 AM EDT Looks like needs an appt before dara will refill, done this please documented in this encounter Plan of Treatment Upcoming Encounters Date Type Department Care Team (Late st Contact Info) Description 03/08/2025 9:00 AM EDT Office Visit [facility] [address] [place] [address] Devendra Caputo, 605 [facility], [address], [address] [place], [place] [phone] 03/15/2025 5:15 PM EDT Appointment [facility] - MRI Imaging [address] [place] [address] 05/17/2025 2:30 PM EST Office Visit [facility] [address] [place] [address] [place] [address] Eduardo Zazueta MD [address] [place] [phone] documented as of this encounter Visit Diagnoses [...] documented as of this encounter Care Teams Grievance And Appeals Specialist Relationship Specialty Start Date End Date Eduardo Zazueta MD 605 [facility] [place] [address] PCP - General Internal Medicine 12/25/23 documented as of this encounter
--- OUTSIDE RECORDS SUMMARY | 2025-03-01 11:56 | XMS_ITS | Encounter Summary ---
Author Organization [facility] [employer] [facility] tem Address [facility]-[id number] [address] [place] [address] Care Team Providers Care Clinical Psychiatrist Name Role Phone Eduardo Zazueta MD Primary Care Provider [phone] Encounter Details Date Type Department Care Team (Late st Contact Info) Description 08/18/2022 Refill [facility] [address] [place] [address] Annette Villagomez CMA Essential hypertension; Hypertension, unspecified type Social History Tobacco Use Types Packs/Day Years [...] Description 03/08/2025 9:00 AM EDT Office Visit [facility] [address] [place] [address] Devendra Caputo, DO 605 [facility], [address] [place] [address] 03/15/2025 5:15 PM EDT Appointment [facility] - MRI Imaging [address] [place] [address] 05/17/2025 2:30 PM EST Office Visit [facility] Family [facility] [address] [facility] [place] [address] Eduardo Zazueta MD 605 [place], [place] [phone] documented as of this encounter Visit Diagnoses Diagnosis Essential hypertension Unspecified essential hypertension Hypertension, unspecified type documented in this encounter Additional Health Concerns Assessment Noted Time PHQ-9 Depression Total Score: 0 06/08/20 19 1:00 PM EST A Body Mass Index follow-up plan has been documented for the patient 06/08/2019 1:37 PM EST documented as of this encounter Care Teams Clinical Psychiatrist Relationship Specialty Start Date End Date Eduardo Zazueta MD 605 [place], [place] [phone] PCP - General Internal Medicine 12/25/23 documented as of this encounter
--- OUTSIDE RECORDS SUMMARY | 2025-03-01 11:56 | XMS_ITS | Encounter Summary ---
Author Organization [employer] [facility] tem Address [facility]-[id number] [address] [place] [address] Care Team Providers Care Canopy Stringer Name Role Phone Eduardo Zazueta MD Primary Care Provider [phone] Reason for Visit * Reason Onset Date Comments Med Refill 06/24/2020 Encounter Details Date Type Department Care Team (Late st Contact Info) Description 06/24/2020 Refill [facility] [address] [place] [address] [place] [address] Teresa Gandhi CMA Calculus of [...] Description 03/08/2025 9:00 AM EDT [facility] [address] [place] [address] Devendra Caputo, DO 605 [facility], [address] [place] [address] 03/15/2025 5:15 PM EDT Appointment [facility] - MRI Imaging [address] [place] [address] 05/17/2025 2:30 PM EST Office Visit [facility] Family Medicine [address] [facility] [place] [place] [address] Eduardo Zazueta MD 605 [facility] Kathy [place], [place] [phone] documented as of this encounter Visit Diagnoses [...] documented as of this encounter Care Teams Canopy Stringer Relationship Specialty Start Date End Date Eduardo Zazueta MD 605 [facility] Kathy [place], [place] [phone] PCP - General Internal Medicine 12/25/23 documented as of this encounter
--- OUTSIDE RECORDS SUMMARY | 2025-03-01 11:56 | XMS_ITS | Encounter Summary ---
Author Organization [facility] tem Address [facility] [place]-[id number] [address] [place] [address] Care Team Providers Care Technical Writer And Editor Name Role Phone Eduardo Zazueta MD Primary Care Provider [phone] Reason for Visit * Reason Comments Med Refill Encounter Details Date Type Department Care Team (Late Contact Info) Description 11/04/2020 Refill [facility] [address] [place] [phone] Samantha Sun, AIR DRIER MACHINE OPERATOR-[facility] [address] [facility] [address] [place] [id number] Essential hypertension; Hypertension, unspecified type Social History [...] have Coronavirus / COVID-19? No / Unsure 11/05/2020 1:20 PM EDT documented as of this encounter Plan of Treatment Upcoming Encounters Date Type Department Care Team ([facility] Contact Info) Description 03/08/2025 9:00 AM EDT Office Visit [facility] [address] [place] [address] [place] [address] Devendra Caputo DO 605 [facility], [address] [place] [address] 03/15/2025 5:15 PM EDT Appointment [facility] - MRI Imaging [address] [place] [address] 05/17/2025 2:30 PM EST Office Visit [facility] Family Medicine [address] [place] [phone] Eduardo Zazueta MD 605 [place] [address] documented as of this encounter Visit Diagnoses [...] documented as of this encounter Care Teams Technical Writer And Editor Relationship Specialty Start Date End Date Eduardo Zazueta MD [address] [place] [phone] PCP - General Internal Medicine 12/25/23 documented as of this encounter
--- OUTSIDE RECORDS SUMMARY | 2025-03-01 11:56 | XMS_ITS | Encounter Summary ---
Author Organization [employer] tem Address [facility]-[id number] [address] [place] [address] Care Team Providers Care Printed Circuit Layout Taper Name Role Phone Eduardo Zazueta MD Primary Care Provider [phone] Reason for Visit * Reason Onset Date Comments Med Refill 09/13/2018 Encounter Details Date Type Department Care Team (Late st Contact Info) Description 09/13/2018 Refill [facility] [address] [place] [address] Samantha Sun, ASSURANCE SPECIALIST-[facility] [address] [facility] [address] [place], [place] [phone] Social History Tobacco Use Types Packs/Day Years Used Date Smoking Tobacco: Never Smokeless Tobacco: Never Alcohol Use Standard Drinks/Week Comments No 1 (1 standard drink = 0.6 oz pur e alcohol) Every 6 months PHQ-2 Answer Date Recorded PHQ-2 Score 1 07/12/2018 Sex and Gender Information Value Date Recorded Sex Assigned at Not on file Legal Sex Male 11:30 AM EDT Gender Identity Not on file Sexual Orientation Not on file documented as of this encounter Plan of Treatment Upcoming Encounters Date Type Department Care Team (Late st Contact Info) Description 03/08/2025 9:00 AM EDT Office Visit [facility] [address] [place] [address] Devendra Caputo, DO 605 [facility], [address], [facility] [place] [address] 03/15/2025 5:15 PM EDT Appointment [facility] - MRI Imaging [address] [place] [address] 05/17/2025 2:30 PM EST Office Visit [facility] Family [facility] [address] [place] [place] [address] Eduardo Zazueta MD [address] [place], [place] [phone] documented as of this encounter Visit Diagnoses Not on filedocumented in this encounter Additional Health Concerns Infection Onset Date Last Indicated Resolved Time COVID-19 Rule-Out 01/17/2022 01/17/2022 01/17/2022 3:46 PM EDT COVID-19 Positive 01/17/2022 01/17/2022 02/07/2022 11:12 PM EDT Assessment Noted Time PHQ-9 Depression Total Score: 1 03/22/20 18 3:00 PM EDT documented as of this encounter Care Teams Printed Circuit Layout Taper Relationship Specialty Start Date End Date Eduardo Zazueta MD 605 [place], [place] [phone] PCP - General Internal Medicine 12/25/23 documented as of this encounter
--- OUTSIDE RECORDS SUMMARY | 2025-03-01 11:56 | XMS_ITS | Encounter Summary ---
Author Organization [facility] [employer] tem Address [facility]-[id number] [address] [place] [address] Care Team Providers Care Charge Master Analyst Name Role Phone Eduardo Zazueta MD Primary Care Provider [phone] Reason for Visit * Reason Onset Date Comments Med Refill 02/14/2025 Encounter Details Date Type Department Care Team (Late st Contact Info) Description 02/14/2025 Refill [facility] [address] [place] [address] [place] [address] Scarlett Rodney CNA Social History Tobacco Use Types Packs/Day Years Used Date Smoking Tobacco: Never Smokeless Tobacco: Never Alcohol Use Standard Drinks/Week Comments No 1 (1 standard drink = 0.6 oz pur e alcohol) [facility] Utilities Answer Date Recorded In the past [...] got money to buy more. Never True 10/02/2024 Within the past 12 months th e food we bought just didn't last and we didn't have money to get more. Never True 10/02/2024 Purpose - Life Answer Date Recorded Purpose [...] Description 03/08/2025 9:00 AM EDT Office Visit [facility] [address] [place] [phone] Devendra Caputo, 605 [facility], [address], [facility] [place] [address] 03/15/2025 5:15 PM EDT Appointment [facility] - MRI Imaging [address] [place] [address] 05/17/2025 2:30 PM EST Office Visit [facility] Family Medicine [address] [place] [address] Eduardo Zazueta MD 605 [place] [address] documented as of this encounter Visit Diagnoses Not on filedocumented in this encounter Additional Health Concerns Assessment Noted Time PHQ-9 Depression Total Score: 2 04/26/20 24 1:00 PM EDT A Body Mass Index follow-up plan has been documented for the patient 06/08/2019 1:37 PM EST documented as of this encounter Care Teams Charge Master Analyst Relationship Specialty Start Date End Date Eduardo Zazueta MD 605 [place] [address] PCP - General Internal Medicine 6/22/24 documented as of this encounter
--- OUTSIDE RECORDS SUMMARY | 2025-03-01 11:56 | XMS_ITS | Encounter Summary ---
Author Organization [employer] [facility] tem Address [facility]-[id number] [address] [place] [address] Care Team Providers Care Analysis Intern Name Role Phone Eduardo Zazueta MD Primary Care Provider [phone] Reason for Visit * Reason Onset Date Comments Med Refill 04/13/2018 Encounter Details Date Type Department Care Team (Late st Contact Info) Description 04/13/2018 Refill [facility] [address] [place] [phone] Samantha Sun APRN-CNP [address] [place] [address] Social History Tobacco Use Types Packs/Day Years Used Date Smoking Tobacco: Never Smokeless Tobacco: Never Alcohol Use Standard Drinks/Week Comments No 1 (1 standard drink = 0.6 oz pur e alcohol) Every 6 months Sex and Gender Information Value Date Recorded Sex Assigned at Not on file Legal Sex Male 11:30 AM EDT Gender Identity Not on file Sexual Orientation Not on file documented as of this encounter Miscellaneous Notes * Telephone Encounter - FAY Jauregui - 04/13/2018 1:47 PM EDT This was not ordered by this provider. Patient will need an appointment to have refill from this provider. documented in this encounter Plan of Treatment Upcoming Encounters Date Type Department Care Team (Late st Contact Info) Description 03/08/2025 9:00 AM EDT Office Visit [facility] [address] [place] [phone] Devendra Caputo, 605 [facility], [address], [facility] [place] [address] 03/15/2025 5:15 PM EDT Appointment [facility] - MRI Imaging [address] [place] [address] 05/17/2025 2:30 PM EST Office Visit [facility] [address] [place] [address] [place] [phone] Eduardo Zazueta MD 605 [place], [place] [phone] documented as of this encounter Visit Diagnoses Not on filedocumented in this encounter Additional Health Concerns Infection Onset Date Last Indicated Resolved Time COVID-19 Rule-Out 01/17/2022 01/17/2022 01/17/2022 3:46 PM EDT COVID-19 Positive 01/17/2022 01/17/2022 02/07/2022 11:12 PM EDT Assessment Noted Time PHQ-9 Depression Total Score: 1 03/22/20 18 3:00 PM EDT documented as of this encounter Care Teams Analysis Intern Relationship Specialty Start Date End Date Eduardo Zazueta MD [address] [place] [address] [place], [place] [phone] PCP - General Internal Medicine 12/25/23 documented as of this encounter
--- OUTSIDE RECORDS SUMMARY | 2025-03-01 11:56 | XMS_ITS | Patient Health Record ---
Author Organization [facility] Address [address] [place] [address] Care Team Providers Care Patrol Inspector Name Role Phone None, Unknown or Primary Care Provider Unavailab le Reason For Referral No Information Plan Of Treatment No Information Insurance Providers Payer Name Payer Address Payer Phone Subscriber Number Group Number Insured Name Patient Relationship to Insured Coverage Start Date Coverage End Date [employer] MEDICARE ADV PLAN [address] [address] [place] [address] [id number] Janes Carranza Self - patient is the insured 9 [place]IC[place] [address] [place] [address] [id number] Janes Carranza Self - patient is the insured 5 8
--- OUTSIDE RECORDS SUMMARY | 2025-03-01 11:56 | XMS_ITS | Encounter Summary ---
Author Organization [facility] [employer] [facility] Address [facility]-[id number] [address] [place] [address] Care Team Providers Care Retail Reset Merchandiser Name Role Phone Eduardo Zazueta MD Primary Care Provider [phone] Reason for Visit * Reason Comments Med Refill Encounter Details Date Type Department Care Team (Late Contact Info) Description 09/15/2022 Refill [facility] [address] [place] [phone] Amarilys Peraza, BID WRITER-PACKAGE SEALER [address], [place], [place] [phone] Essential hypertension; Hypertension, unspecified type Social History [...] have Coronavirus / COVID-19? No / Unsure 09/09/2022 7:55 AM EST documented as of this encounter Plan of Treatment Upcoming Encounters Date Type Department Care Team (Late Contact Info) Description 03/08/2025 9:00 AM EDT Office Visit [facility] Family Medicine [address] [place] [phone] Devendra Caputo, [address], [address], [place] [address] 03/15/2025 5:15 PM EDT Appointment [facility] - MRI Imaging [address] [place] [address] 05/17/2025 2:30 PM EST Office Visit [facility] Family Medicine [address] [place] [address] [place] [phone] Eduardo Zazueta MD 605 [place] [address] documented as of this encounter Visit Diagnoses Diagnosis Essential hypertension Unspecified essential hypertension Hypertension, unspecified type documented in this encounter Additional Health Concerns Assessment Noted Time PHQ-9 Depression Total Score: 0 06/08/20 19 1:00 PM EST A Body Mass Index follow-up plan has been documented for the patient 06/08/2019 1:37 PM EST documented as of this encounter Care Teams Retail Reset Merchandiser Relationship Specialty Start Date End Date Eduardo Zazueta MD 605 [place] [address] PCP - General Internal Medicine 12/25/23 documented as of this encounter
--- OUTSIDE RECORDS SUMMARY | 2025-03-01 11:56 | XMS_ITS | Encounter Summary ---
Author Organization [facility] tem Address [facility][id number] [address] [place] [address] Care Team Providers Care Asian Studies Professor Name Role Phone Eduardo Zazueta MD Primary Care Provider [phone] Reason for Visit * Reason Onset Date Comments Med Refill 05/12/2018 Encounter Details Date Type Department Care Team (Late st Contact Info) Description 05/12/2018 Refill [facility] [address] [place] [address] [place] [address] Elis Chaves RMA Encounter for medical examination to establish care; Calculus of kidney and ureter; Acute right-sided back pain with sciatica Social History Tobacco Use Types Packs/Day Years [...] Description 03/08/2025 9:00 AM EDT Office [facility] [address] [place] [address] [place] [address] Devendra Caputo, DO 605 [facility], [address] [place] [address] 03/15/2025 5:15 PM EDT Appointment [facility] - MRI Imaging [address] [place] [address] 05/17/2025 2:30 PM EST Office Visit [facility] [address] [place] [address] Eduardo Zazueta MD [address] [place] [address] documented as of this encounter Visit Diagnoses Diagnosis Encounter for medical examination to establish care Calculus of kidney and ureter Calculus of kidney Acute right-sided back pain with sciatica documented in this encounter Additional Health Concerns Infection Onset Date Last Indicated Resolved Time COVID-19 Rule-Out 01/17/2022 01/17/2022 01/17/2022 3:46 PM EDT COVID-19 Positive 01/17/2022 01/17/2022 02/07/2022 11:12 PM EDT Assessment Noted Time PHQ-9 Depression Total Score: 1 03/22/20 18 3:00 PM EDT documented as of this encounter Care Teams Asian Studies Professor Relationship Specialty Start Date End Date Eduardo Zazueta MD [address] [facility] Kathy [place], [place] [phone] PCP - General Internal Medicine 12/25/23 documented as of this encounter
--- OUTSIDE RECORDS SUMMARY | 2025-03-01 11:56 | XMS_ITS | Encounter Summary ---
Author Organization [facility] Sy tem Address [facility] [place][id number] [address] [place] [address] Care Team Providers Care Financial Director Name Role Phone Eduardo Zazueta MD Primary Care Provider [phone] Reason for Visit * Reason Comments Med Refill Encounter Details Date Type Department Care Team (Late st Contact Info) Description 06/22/2020 Refill [facility] [address] [place] [address] Samantha Sun, BUCKLE ATTACHING MACHINE OPERATOR-[facility] [address] [place] [id number] Essential hypertension; Hypertension, unspecified type Social History [...] Visit [facility] [address] [place] [address] Devendra Caputo, DO 605 [facility], [address], [place] [address] 03/15/2025 5:15 PM EDT Appointment [facility] - MRI Imaging [address] [place] [address] 05/17/2025 2:30 PM EST Office Visit [facility] [address] [place] [phone] Eduardo Zazueta MD [address] [place] [address] documented as of this encounter Visit Diagnoses [...] documented as of this encounter Care Teams Financial Director Relationship Specialty Start Date End Date Eduardo Zazueta MD [address] [facility] [place] [address] PCP - General Internal Medicine 12/25/23 documented as of this encounter
--- OUTSIDE RECORDS SUMMARY | 2025-03-01 11:56 | XMS_ITS | Encounter Summary ---
Author Organization [facility] Sys tem Address [facility] [place] [facility] [id number] [address] [place] [address] Care Team Providers Care Kitchen Work Supervisor Name Role Phone Eduardo Zazueta MD Primary Care Provider [phone] Reason for Visit * Reason Onset Date Comments Med Refill 06/08/2018 Encounter Details Date Type Department Care Team (Late st Contact Info) Description 06/08/2018 Refill [facility] [address] [place] [phone] Elis Chaves RMA Calculus of kidney and ureter; Encounter for medical examination to establish care Social History Tobacco Use Types Packs/Day Years [...] * Telephone Encounter - FAY Jauregui - 06/08/2018 9:56 AM EST Patient needs an appointment * Telephone Encounter - MARVIN Tatum - 06/08/2018 9:56 AM EST Pt has appt on 06/13/18 documented in this encounter Plan of Treatment Upcoming Encounters Date Type Department Care Team (Late st Contact Info) Description 03/08/2025 9:00 AM EDT Office Visit [facility] [address] [place] [phone] Devendra Caputo, [address], [address], [place] [address] 03/15/2025 5:15 PM EDT Appointment [facility] - MRI Imaging [address] [place] [address] 05/17/2025 2:30 PM EST Office Visit [facility] [address] [facility] [place] [phone] Eduardo Zazueta MD 605 [place], [place] [phone] documented as of this encounter Visit Diagnoses Diagnosis Calculus of kidney and ureter Calculus of kidney Encounter for medical examination to establish care documented in this encounter Additional Health Concerns Infection Onset Date Last Indicated Resolved Time COVID-19 Rule-Out 01/17/2022 01/17/2022 01/17/2022 3:46 PM EDT COVID-19 Positive 01/17/2022 01/17/2022 02/07/2022 11:12 PM EDT Assessment Noted Time PHQ-9 Depression Total Score: 1 03/22/20 18 3:00 PM EDT documented as of this encounter Care Teams Kitchen Work Supervisor Relationship Specialty Start Date End Date Eduardo Zazueta MD [address] [place], [place] [phone] PCP - General Internal Medicine 12/25/23 documented as of this encounter
--- OUTSIDE RECORDS SUMMARY | 2025-03-01 11:56 | XMS_ITS | Encounter Summary ---
Author Organization [facility] tem Address [facility] [id number] [address] [place] [address] Care Team Providers Care Printing Press Operator Name Role Phone Eduardo Zazueta MD Primary Care Provider [phone] Encounter Details Date Type Department Care Team (Late st Contact Info) Description 04/16/2022 Refill [facility] [address] [place] [phone] Enid James CMA Essential hypertension Social History Tobacco Use [...] * Telephone Encounter - FAY Jauregui - 04/16/2022 9:36 AM EDT A 14 day refill was sent to the pharmacy 3 days ago- Patient needs an appointment for additional medication. documented in this encounter Plan of Treatment Upcoming Encounters Date Type Department Care Team (Late st Contact Info) Description 03/08/2025 9:00 AM EDT Office Visit [facility] [address] [place] [phone] Devendra Caputo, 605 [facility], [address], [place] [address] 03/15/2025 5:15 PM EDT Appointment [facility] - MRI Imaging [address] [place] [address] 05/17/2025 2:30 PM EST Office Visit [facility] [address] [place] [address] [place] [phone] Eduardo Zazueta MD [address] [place] [address] documented as of this encounter Visit Diagnoses Diagnosis Essential hypertension Unspecified essential hypertension documented in this encounter Additional Health Concerns Assessment Noted Time PHQ-9 Depression Total Score: 0 06/08/20 19 1:00 PM EST A Body Mass Index follow-up plan has been documented for the patient 06/08/2019 1:37 PM EST documented as of this encounter Care Teams Printing Press Operator Relationship Specialty Start Date End Date Eduardo Zazueta MD [address] [place] [address] PCP - General Internal Medicine 12/25/23 documented as of this encounter
--- OUTSIDE RECORDS SUMMARY | 2025-03-01 11:56 | XMS_ITS | Encounter Summary ---
Author Organization [facility] tem Address [facility] [place] [place][id number] [address] [place] [address] Care Team Providers Care Squeegee Finisher Name Role Phone Eduardo Zazueta MD Primary Care Provider [phone] Reason for Visit * Reason Comments Med Refill Encounter Details Date Type Department Care Team (Late st Contact Info) Description 11/02/2020 Refill [facility] [address] [place] [phone] Samantha Sun APRN-CNP [address] [facility] [address] [place] [id number] Essential hypertension Social History Tobacco Use Types [...] * Telephone Encounter - FAY Jauregui - 11/02/2020 6:54 AM EDT Patient needs to schedule an appointmemt. A 30-day supply of medication has been sent to the pharmacy to allow for him to schedule in the next 4 weeks documented in this encounter Plan of Treatment Upcoming Encounters Date Type Department Care Team (Late st Contact Info) Description 03/08/2025 9:00 AM EDT [facility] [address] [place] [address] [place] [address] Devendra Caputo, DO 605 [facility], [address], [place] [address] 03/15/2025 5:15 PM EDT Appointment [facility] - MRI Imaging [address] [place] [address] 05/17/2025 2:30 PM EST Office Visit [facility] [address] [place] [address] [place] [address] Eduardo Zazueta MD [address] [place] [address] [facility] [place] [address] documented as of this encounter Visit Diagnoses [...] documented as of this encounter Care Teams Squeegee Finisher Relationship Specialty Start Date End Date Eduardo Zazueta MD [address] [place] [address] FARAZ BERNAL [facility] [place], [place] [phone] PCP - General Internal Medicine 12/25/23 documented as of this encounter
--- OUTSIDE RECORDS SUMMARY | 2025-03-01 11:56 | XMS_ITS | Encounter Summary ---
Author Organization [employer] Sys tem Address [facility] [id number] [address] [place] [address] Care Team Providers Care Bushel Girl Name Role Phone Eduardo Zazueta MD Primary Care Provider [phone] Reason for Visit * Reason Comments Med Refill Encounter Details Date Type Department Care Team (Late Contact Info) Description 11/27/2022 Refill [facility] [address] [place] [address] [place] [address] Samantha Sun, [facility] [address] [place] [phone] Calculus of kidney and ureter Social History [...] Upcoming Encounters Date Type Department Care Team ([facility] Contact Info) Description 03/08/2025 9:00 AM EDT Office Visit [facility] [address] [place] [address] Devendra Caputo, DO 605 [facility], [address], [facility] [place] [address] 03/15/2025 5:15 PM EDT Appointment [facility] - MRI Imaging [address] [place] [address] 05/17/2025 2:30 PM EST Office Visit [facility] [address] [facility] [place] [address] Eduardo Zazueta MD [address] [place] [address] documented as of this encounter Visit Diagnoses Diagnosis Calculus of kidney and ureter Calculus of kidney documented in this encounter Additional Health Concerns Assessment Noted Time PHQ-9 Depression Total Score: 0 06/08/20 19 1:00 PM EST A Body Mass Index follow-up plan has been documented for the patient 06/08/2019 1:37 PM EST documented as of this encounter Care Teams Bushel Girl Relationship Specialty Start Date End Date Eduardo Zazueta MD [address] [place] [address] PCP - General Internal Medicine 12/25/23 documented as of this encounter
--- OUTSIDE RECORDS SUMMARY | 2025-03-01 11:56 | XMS_ITS | Clinical Summary ---
Author Organization [employer] tem Address [facility] [place] [facility] [id number] [address] [place] [address] Care Team Providers Care Jigger Operator Name Role Phone Eduardo Zazueta MD Primary Care Provider [phone] Allergies Active Allergy Reactions Criticality Noted Date Comments No Known Drug Allergies 10/14/2016 Medications petrolat,wht/mi n oil/sod chl (DRY EYES OPHT) Instill to eye. Active propylene glycol (SYSTANE BALANCE OPHT) Instill to eye in the morning and before bedtime. Active tiZANidine (ZANAFLEX) 4 mg tablet Take 1 tablet (4 mg total) by mouth every 6 (six) hours as needed for muscle spasms. 30 tablet 4 Active hydrOXYzine (ATARAX) 25 mg tablet Take 1 tablet (25 mg total) by mouth 3 (three) times a day as needed for anxiety. 30 tablet 4 Active ibuprofen (MOTRIN) 600 mg tablet Take 1 tablet (600 mg total) by mouth every 6 (six) hours as needed for pain. 30 tablet 4 Active glucosamine-cho ndroitin 500-400 mg tabletIndicatio ns:Arthritis Take 1 tablet by mouth in the morning and at bedtime. 180 tablet 2 4 Active carbamide peroxide (DEBROX) 6.5 % otic solutionIndicat ions:Impacted cerumen of right ear Administer 10 drops to the right ear in the morning and 10 drops before bedtime. 15 mL 5 Active meloxicam (MOBIC) 15 mg tabletIndicatio ns:Cervicalgia Take 1 tablet (15 mg total) by mouth in the morning. 90 tablet 1 5 Active finasteride (PROSCAR) 5 mg tabletIndicatio ns:Calculus of kidney and ureter Take 1 tablet (5 mg total) by mouth in the morning. 90 tablet 3 5 Active clotrimazole (LOTRIMIN) 1 % cream Apply 1 Application topically in the morning and 1 Application before bedtime. 30 g 3 5 Active tamsulosin (FLOMAX) 0.4 mg capsuleIndicati ons:Calculus of kidney and ureter TAKE ONE CAPSULE BY MOUTH ONCE NIGHTLY 90 capsule 3 5 Active carvediloL (COREG) 3.125 mg tabletIndicatio ns:Essential hypertension,Hy pertension, unspecified type Take 1 tablet (3.125 mg total) by mouth in the morning and 1 tablet (3.125 mg total) before bedtime. 180 tablet 1 5 Active carvediloL (COREG) 3.125 mg tabletIndicatio ns:Essential hypertension,Hy pertension, unspecified type Take 1 tablet (3.125 mg total) by mouth in the morning and 1 tablet (3.125 mg total) before bedtime. 180 tablet 1 4 025 Discontin ued(Reord er) tamsulosin (FLOMAX) 0.4 mg capsuleIndicati ons:Calculus of kidney and ureter TAKE ONE CAPSULE BY MOUTH ONCE NIGHTLY 90 capsule 3 4 025 Discontin ued(Reord er) Active Problems Problem Noted Date Diagnosed Date Cough 02/24/2025 Assessment & Plan (02/24/2025 10:30 PM EDT): Order chest x-ray to evaluate for causes of cough HLD (hyperlipidemia) 02/19/2025 Assessment & Plan (02/24/2025 10:29 PM EDT): Lipid abnormalities ordered to evaluate for coronary artery disease prevention New onset of headaches after age 50 02/19/2025 Assessment & Plan (02/24/2025 10:31 PM EDT): Due to new onset of headache after the age of 48 ordered MRI brain without contrast to rule out mass as cause for headache. Ordered lab work including CBC with diff and C-reactive protein to rule out inflammatory cause for headache and comprehensive metabolic panel to rule out metabolic causes for headache. Impacted cerumen of right ear 10/02/2024 Assessment & Plan (10/02/2024 5:16 PM EDT): Attempted to remove thick cerumen by manual extraction with curette as well as with ear flushing. Some cerumen removed but did not tolerate procedure well due to discomfort.. Prescribed Debrox 6.5% otic solution 10 drops to right ear twice daily. Patient to return in 1 week for re-evaluation of cerumen impaction Cervicalgia 10/02/2024 Assessment & Plan (02/24/2025 10:30 PM EDT): Ordered x-ray of cervical spine to evaluate for degree of dysfunction of the cervical spine. Continue with meloxicam 15 mg daily Assessment & Plan (10/02/2024 5:14 PM EDT): Due to remote history of injury to cervical spine and physical findings on exam today, ordered x-ray of the cervical spine. Started on meloxicam 15 mg 1 tablet daily as anti-inflammatory and for pain for neck and other areas of arthralgia Chronic right-sided low back pain without sciati ca 12/26/2023 Bilateral inguinal hernia without obstruction or gangrene 09/07/2023 Obesity (BMI 30-39.9) 11/26/2020 Regional wall motion abnormality of heart 2018 Overview (02/10/2019): Inferior wal lmotion abnormality seen on echo, 2019 LV dysfunction 08/08/2018 Abnormal ECG 08/08/2018 Acute right-sided back pain with sciatica 2017 Benign localized prostatic h yperplasia with lower urinary tract symptoms (LUTS) 01/18/2018 Overview (09/07/2023): luts - Using tamsulosin and finasteride. Neck contusion 09/22/2017 Calculus of kidney and ureter 10/20/2016 Overview (09/07/2023): History of recurrent stones currently with bilateral nonobstructing renal calculi and 4.4 x 9 millimeter distal left ureteral calculus. Left ureteroscopy with laser and stent 11/1801/18/18: Right renal stone on ct. Symptoms that resolved a few months agop. Plan kub to see if stones growing 09/01/22: CT with bilateral nonobstructing stones with the largest measuring 3 mm in lower pole. Odds of moving are 50 50 in 5 years. Given the small size would be in favor of following 03/02/23: increasing sediment in urine. Plan to repeat CT. I told him his bladder is not the cause of hte back pain. 04/14/23: CT shows two 3mm stones in the right kidney and question of a punctate stone in the left kidney. Saw his PCP and has had improvement in pain with toradol injection. 09/07/23: kub with no significant stone burden. Unclear if his pain is from the hernia vs his back. Referred to gen surg for opinion Assessment & Plan (04/14/2023 2:26 PM EDT): Reviewed basic dietary guidelines for stone prevention. Stones appear to be stable since imaging from August. We will see him back in 9 months with a KUB or sooner if any problems Chronic hepatitis C 04/30/2008 Essential hypertension Assessment & Plan (02/24/2025 10:23 PM EDT): Hypertension is controlled and patient tolerating medications. Continue with carvedilol 3.125 mg 1 tablet twice daily for blood pressure control. Ordered comprehensive metabolic panel to monitor electrolytes and kidney function. Resolved Problems Problem Noted Date Diagnosed Date Resolved Date Chest pain, unspecified type 12/25/2023 02/19/2025 Encounters Date Type Department Care Team Description 03/01/2025 Telephone [facility] [address] [place] [address] [place] [address] Chuyita Martin CNA referral 02/19/2025 3:00 PM EDT Office Visit [facility] [address] [place] [phone] Devendra Caputo, DO New onset of headaches after age 50 (Primary Dx); Cough, unspecified type; Cervicalgia; Screening for lipid disorders; Primary hypertension; Hyperlipidemia, unspecified hyperlipidemia type; Hyperglycemia 02/19/2025 Travel 02/14/2025 Refill [facility] [address] [phone] Scarlett Rodney CNA 02/07/2025 Refill [facility] [address] [phone] Annette Villagomez, [facility] Calculus of kidney and ureter; Essential hypertension; Hypertension, unspecified type 02/01/2025 Refill [facility] - Family Medicine [address] [place] [address] Norm Mas, INSTRUMENT TECHNICIAN [facility] Essential hypertension; Hypertension, unspecified type 01/09/2025 Refill [facility] [address] [phone] Tiara Carrasco CMA 12/22/2024 Refill [facility] [address] [phone] Chuyita Martin HYBRID CORN BREEDER Calculus of kidney and ureter 12/22/2024 Refill [facility] [address] [phone] Devendra Caputo, DO Cervicalgia from Last 3 Months Immunizations Immunization Administration Dates Next Due Covid-19, Mrna, Lnp-s, Pf,tr is-sucrose,30 Mcg/0.3ml Seasonal 04/26/2024 Hepatitis B 02/24/2018 Influenza, High-dose, Quadrivalent 05/21/2022,,04/17/2020 Influenza, Injectable, quadrivalent (PF) 019,08/30/2018 Influenza, Trivalent, Adjuvanted 04/26/2024 Influenza, Unspecified 04/21/2018 Pneumococcal Conjugate 13-Valent 04/21/2018,02/03 Pneumococcal Polysaccharide 06/08/2019 Tdap 03/28/2012 Family History Medical History Relation Name Comments Aneurysm Father Stroke Father Diabetes Mother Kidney disease Mother Relation Name Status Comments Father Mother Social History Tobacco Use Types Packs/Day Years Used Date Smoking Tobacco: Never Smokeless Tobacco: Never Tobacco Cessation:Counseling Given: No Alcohol Use Standard Drinks/Week Comments No 1 (1 standard drink = 0.6 oz pur e alcohol) [facility] Utilities Answer Date Recorded In the past [...] F) 02/19/2025 3:11 PM EDT Respiratory Rate 16 02/19/2024 1:54 AM EDT Oxygen Saturation 97% 02/19/2025 3:11 PM EDT Inhaled Oxygen Concentration - - Weight 78.8 kg (173 lb 12.8 oz) 02/19/2025 3:11 PM EDT Height 172.7 cm (5' 8 ) 08/23/2024 1:28 PM EST Body Mass Index 26.43 08/23/2024 1:28 PM EST Plan of Treatment Upcoming Encounters Date Type Department Care Team (Late st Contact Info) Description 03/08/2025 9:00 AM EDT Office Visit [facility] [address] [place] [address] [place] [phone] Devendra Caputo, DO 605 [facility], [address], [address] [place], [place] [phone] 03/15/2025 5:15 PM EDT Appointment [facility] - MRI Imaging [address] [place] [address] 05/17/2025 2:30 PM EST [facility] [address] [place] [address] [place] [phone] Eduardo Zazueta MD 605 [place] [address] Health Maintenance Due Date Last Done Comments Zoster (Shingles) Vaccine (1 of 2) 1998 DTaP,Tdap and Td Vaccines (2 - Td or Tdap) 03/28/2022 03/28/2012 COVID-19 Vaccine (2023-2 5 season) 2024 04/26/2024, 05/21/2023, 05/21/2022, Additional history exists Influenza Vaccine 03/05/2025 04/26/2024, , 05/21/2022, Additional history exists Fall Risk Screening 04/26/2025 04/26/2024 Medicare Annual Wellness Visit 04/26/2025 1 , 06/08/2019, 02/24/2018 Depression Screening 02/19/2026 02/19/2025 Tobacco Screening 02/19/2026 02/19/2025 Medical Devices Implanted Type Area School Bus Inspector Device Identifier Shelf Expiration Date Model / Serial / Lot Lens 18.5 [place] [id number] - [id number] - [id number] Implanted:Qty: 1 on 04/21/2017 by Preeti Porter MD at [facility] Lens Left: Eye [employer] 08/22/2021 [id number] / [id number] D / [id number] Stent Percuflex 6x26 - [id number] Implanted:Qty: 1 on 12/01/2016 by Lavon Sosa MD at [facility] Stent Left: Ureter [employer] 02/28/2019 [id number] / / [id number] Insurance [employer] MED[employer] WORKERS COMPENSATION Advance Directives * Full Code (Latest Code Status on File) Date Activated Date Inactivated Comments 12/25/2023 9:22 AM 12/26/2023 1:38 PM Care Teams Jigger Operator Relationship Specialty Start Date End Date Eduardo Zazueta MD [address] [facility] [address] [place] [address] PCP - General Internal Medicine 12/25/23
--- OUTSIDE RECORDS SUMMARY | 2025-03-01 11:56 | XMS_ITS | Encounter Summary ---
Author Organization [facility] tem Address [id number] [address] [place] [address] Care Team Providers Care Government Professor Name Role Phone Eduardo Zazueta MD Primary Care Provider Encounter Details Date Type Department Care Team (Late st Contact Info) Description 07/07/2022 Telephone [facility] [address] [place] [address] Samantha Sun, LAY OUT CARPENTER-SUPERVISOR PUBLIC MESSAGE SERVICE [address] [facility] [address] [place] [address] Social History Tobacco Use Types Packs/Day Years [...] have Coronavirus / COVID-19? No / Unsure 07/03/2022 11:51 AM EST documented as of this encounter Miscellaneous Notes * Telephone Encounter - Vinita Alcaraz - 07/07/2022 2:55 PM EST Called patient to cancel appointment. He said he would be getting a hold of Urologist next week. Healso asked about Rx for itching down there and wanted to know if provider could write Rx. Thanks. * Telephone Encounter - FAY Jauregui - 07/07/2022 2:55 PM EST Rx sent to the pharmacy for jock itch documented in this encounter Plan of Treatment Upcoming Encounters Date Type Department Care Team (Late st Contact Info) Description 03/08/2025 9:00 AM EDT Office Visit [facility] [address] [place] [phone] Devendra Caputo, 605 [facility], [address] [place] [address] 03/15/2025 5:15 PM EDT Appointment [facility] - MRI Imaging [address] [place] [address] 05/17/2025 2:30 PM EST Office Visit [facility] [address] [place] [phone] Eduardo Zazueta MD [address] [facility] [address] documented as of this encounter Visit Diagnoses Not on filedocumented in this encounter Additional Health Concerns Assessment Noted Time PHQ-9 Depression Total Score: 0 06/08/20 19 1:00 PM EST A Body Mass Index follow-up plan has been documented for the patient 06/08/2019 1:37 PM EST documented as of this encounter Care Teams Government Professor Relationship Specialty Start Date End Date Eduardo Zazueta MD 605 [facility] FARAZ [place] [address] PCP - General Internal Medicine 12/25/23 documented as of this encounter
--- OUTSIDE RECORDS SUMMARY | 2025-03-01 11:56 | XMS_ITS | Encounter Summary ---
Author Organization [employer] Sys tem Address [facility] [id number] [address] [place] [address] Care Team Providers Care Copy And Print Associate Name Role Phone Edaurdo Zazueta MD Primary Care Provider [phone] Reason for Visit * Reason Comments Med Refill Encounter Details Date Type Department Care Team (Late Contact Info) Description 04/05/2021 Refill [facility] [address] [place] [address] [address] Samantha Sun, CODE INSPECTOR-[facility] [address] [facility] [address] [place] [id number] Essential hypertension; Hypertension, unspecified type; Calculus of kidney and ureter Social History [...] Family Medicine [address] [place] [address] Devendra Caputo, DO [address] [facility] [address], [place] [address] 03/15/2025 5:15 PM EDT Appointment [facility] - MRI Imaging [address] [place] [address] 05/17/2025 2:30 PM EST Office Visit [facility] Family Medicine [address] [place] [phone] Eduardo Zazueta MD [address] [place] [address] [phone] documented as of this encounter Visit Diagnoses Diagnosis Essential hypertension Unspecified essential hypertension Hypertension, unspecified type Calculus of kidney and ureter Calculus of [...] documented as of this encounter Care Teams Copy And Print Associate Relationship Specialty Start Date End Date Eduardo Zazueta MD [address] [place] [address] [phone] PCP - General Internal Medicine 12/25/23 documented as of this encounter
--- OUTSIDE RECORDS SUMMARY | 2025-03-01 11:56 | XMS_ITS | Encounter Summary ---
Author Organization [employer] Sys tem Address [id number] [address] [place] [address] Care Team Providers Care Lan/Wan Engineer Name Role Phone Eduardo Zazueta MD Primary Care Provider [phone] Encounter Details Date Type Department Care Team (Late st Contact Info) Description 12/03/2022 Refill [facility] [address] [place] [address] Hetal Lerner CMA Calculus of kidney and ureter Social [...] encounter Miscellaneous Notes * Telephone Encounter - Annette Villagomez CMA - 12/03/2022 11:26 AM EDT Tried to call patient but no answer so I left a voicemail. * Telephone Encounter - Annette Villagomez CMA - 12/03/2022 11:26 AM EDT Called patient and he has not but was going to. documented in this encounter Plan of Treatment Upcoming Encounters Date Type Department Care Team (Late st Contact Info) Description 03/08/2025 9:00 AM EDT Office Visit [facility] [address] [place] [address] [place] [address] Devendra Caputo, DO 605 [facility], [address], [facility] [place] [address] 03/15/2025 5:15 PM EDT Appointment [facility] - MRI Imaging [address] [place] [address] 05/17/2025 2:30 PM EST Office Visit [facility] Family Medicine [address] [place] [phone] Eduardo Zazueta MD [address] [place] [address] documented as of this encounter Visit Diagnoses Diagnosis Calculus of kidney and ureter Calculus of kidney documented in this encounter Additional Health Concerns Assessment Noted Time PHQ-9 Depression Total Score: 0 06/08/20 19 1:00 PM EST A Body Mass Index follow-up plan has been documented for the patient 06/08/2019 1:37 PM EST documented as of this encounter Care Teams Lan/Wan Engineer Relationship Specialty Start Date End Date Eduardo Zazueta MD [address] [place] [address] PCP - General Internal Medicine 12/25/23 documented as of this encounter
--- OUTSIDE RECORDS SUMMARY | 2025-03-01 11:56 | XMS_ITS | Clinical Summary ---
Author Organization [facility] Address [address] [place] [address], [address] [place] [address] Care Team Providers Care Percussion Instrument Tuner Name Role Phone Unavailable Primary Care Provider Unavailabl e Allergies No known active allergies Medications [place] 3 1000 MG CAPS Take 1,000 mg by mouth once One tablet daily Active carvedilol (COREG) 3.125 MG tablet Take 1 tablet by mouth 2 times daily 3 Active clotrimazole (LOTRIMIN) 1 % cream Apply 1 Application topically as needed 4 Active diclofenac sodium (VOLTAREN) 1 % GEL Apply 2 g topically 4 times daily 3 Active finasteride (PROSCAR) 5 MG tablet Take 1 tablet by mouth daily 3 Active tamsulosin (FLOMAX) 0.4 MG capsule Take 1 capsule by mouth nightly 3 Active valsartan (DIOVAN) 40 MG tablet Take 1 tablet by mouth daily 4 Active TURMERIC PO Take 1 tablet by mouth daily Active Multiple Vitamin (DAILY-VITAMIN) TABS Take 1 tablet by mouth daily Active NONFORMULARY Take 1 tablet by mouth daily as needed Aleve 1 tablet as needed Active docusate sodium (COLACE) 100 MG capsule Take 1 capsule by mouth 2 times daily 20 capsule 4 Active Active Problems Problem Noted Date Diagnosed Date Status post bilateral inguinal hernia repair Non-recurrent bilateral ingu inal hernia without obstruction or gangrene 10/12/2023 Social History Tobacco Use Types Packs/Day Years Used Date Smoking Tobacco: Never Smokeless Tobacco: Never Tobacco Cessation:Counseling Given: Not Answered Alcohol Use Standard Drinks/Week Comments Not Currently 0 (1 standard drink = 0.6 oz pur e alcohol) used to drink beer Interpersonal Safety Domain Source: IP Abuse Scr eening Answer Date Recorded Read-Only, Retired: Physical Abuse Denies 11/03/2023 Read-Only, Retired: Verbal Abuse Denies 11/03/2023 Read-Only, Retired: Emotional abuse Denies 11/03/2023 Read-Only, Retired: Financial Abuse Denies 11/03/2023 Read-Only, Retired: Sexual abuse Denies 11/03/2023 Sex and Gender Information Value Date Recorded Sex Assigned at Not on file Legal Sex Male 2:17 PM EST Gender Identity Not on file Sexual Orientation Not on file Last Filed Vital Signs Vital Sign Reading Time Taken Comments Blood Pressure 135/84 11/24/2023 8:30 AM EDT Pulse 57 11/24/2023 8:30 AM EDT Temperature 36.2 C (97.2 F) 11/03/2023 1:45 PM EDT Respiratory Rate 16 11/24/2023 8:30 AM EDT Oxygen Saturation 97% 11/24/2023 8:30 AM EDT Inhaled Oxygen Concentration - - Weight 77.1 kg (170 lb) 11/03/2023 7:41 AM EDT Height 172.7 cm (5' 8 ) 11/03/2023 7:41 AM EDT Body Mass Index 25.85 11/03/2023 7:41 AM EDT Plan of Treatment Health Maintenance Due Date Last Done Comments Depression Screen 1960 Hepatitis C screen 1966 Shingles vaccine (1 of 2) 1998 Hepatitis B vaccine (2 of 3 - 19+ 3-dose series) 03/24/2018 02/24/2018 DTaP/Tdap/Td vaccine (2 - Td or Tdap) 03/28/2022 03/28/2012 Respiratory Syncytial Virus (RSV) or age 60 yrs+ (1 - 1-dose 75+ series) 10/17/2023 COVID-19 Vaccine ( - 2023- season) 2024 05/21/2023, 05/21/2022, 05/27/2021, Additional history exists Annual Wellness Visit (Medicare Advantage) 07/05/2024 Flu vaccine (#1) 02/02/2025 05/21/2023, , 05/27/2021, Additional history exists Pneumococcal 50+ years Vaccine Completed 06/08/2019, 04/21/2018, 02/24/2018 Hepatitis A vaccine Aged Out No longe r eligible based on patient's age to complete this topic Hib vaccine Aged Out No longer eligi ble based on patient's age to complete this topic Meningococcal (ACWY) vaccine Aged Out No longer eligible based on patient's age to complete this topic Meningococcal B vaccine Aged Out No l onger eligible based on patient's age to complete this topic Polio vaccine Aged Out No longer elig ible based on patient's age to complete this topic Medical Devices Implanted Type Area Grain Cleaner And Transfer Operator Device Identifier Shelf Expiration Date Model / Serial / Lot Mesh Andrew L [id number] L Inguinal Wht Polypr Mfil - [id number] Implanted:Qty: 1 on 11/03/2023 by Dionisio Villaseñor DO at [facility] Left: Groin BARD DAVOL-WD 03/01/2028 [id number] / / [id number] Mesh Andrew L [id number] R Inguinal Wht Polypr Mfil - [id number] Implanted:Qty: 1 on 11/03/2023 by Dionisio Villaseñor DO at [facility] Right: Groin DAVOL-WD 05/01/2028 [id number] / / [id number] Insurance MEDICARE
--- OUTSIDE RECORDS SUMMARY | 2025-03-01 11:56 | XMS_ITS | Encounter Summary ---
Author Organization [employer] Sys [employer] Address [facility] [id number] [address] [place] [address] Care Team Providers Care Operations Asst Name Role Phone Eduardo Zazueta MD Primary Care Provider [phone] Reason for Visit * Reason Comments Med Refill Encounter Details Date Type Department Care Team (Late Contact Info) Description 12/27/2020 Refill [facility] [address] [place] [address] [place] [address] Samantha [place], LIGHTING FIXTURE INSTALLER-[facility] [address] [place] [phone] Calculus of kidney and ureter Social History [...] Visit [facility] [address] [place] [address] Devendra Caputo, DO 605 [facility], [address] [place] [address] 03/15/2025 5:15 PM EDT Appointment [facility] - MRI Imaging [address] [place] [address] 05/17/2025 2:30 PM EST Office Visit [facility] Family Medicine [address] [facility] [place] [address] Eduardo Zazueta MD 605 [facility] [place] [address] documented as of this encounter Visit Diagnoses [...] documented as of this encounter Care Teams Operations Asst Relationship Specialty Start Date End Date Eduardo Zazueta MD 605 [place] [address] PCP - General Internal Medicine 12/25/23 documented as of this encounter
--- OUTSIDE RECORDS SUMMARY | 2025-03-01 11:56 | XMS_ITS | Encounter Summary ---
Author Organization [email or web address] Sys tem Address [facility][id number] [address] [place] [address] Care Team Providers Care Laborer Airport Maintenance Name Role Phone Eduardo Zazueta MD Primary Care Provider [phone] Encounter Details Date Type Department Care Team (Late Contact Info) Description 07/23/2022 Refill [facility] [address] [place] [address] Hetal Lerner CMA Calculus of kidney [...] Family Medicine [address] [place] [address] Devendra Caputo, DO 605 [facility] [address] [place] [address] 03/15/2025 5:15 PM EDT Appointment [facility] - MRI Imaging [address] [place] [address] 05/17/2025 2:30 PM EST Office Visit [facility] Family Medicine [address] [place] [address] [place] [phone] Eduardo Zazueta MD 605 [facility] [place] [address] documented as of this encounter Visit Diagnoses Diagnosis Calculus of kidney and ureter Calculus of kidney documented in this encounter Additional Health Concerns Assessment Noted Time PHQ-9 Depression Total Score: 0 06/08/20 19 1:00 PM EST A Body Mass Index follow-up plan has been documented for the patient 06/08/2019 1:37 PM EST documented as of this encounter Care Teams Laborer Airport Maintenance Relationship Specialty Start Date End Date Eduardo Zazueta MD [address] [place] [address] PCP - General Internal Medicine 12/25/23 documented as of this encounter
--- OUTSIDE RECORDS SUMMARY | 2025-03-01 11:56 | XMS_ITS | Encounter Summary ---
Author Organization [facility] Sys tem Address [facility][id number] [address] [place] [address] Care Team Providers Care Bean Roaster Name Role Phone Eduardo Zazueta MD Primary Care Provider [phone] Reason for Visit * Reason Comments Med Refill Encounter Details Date Type Department Care Team (Late Contact Info) Description 12/01/2020 Refill [facility] [address] [place] [phone] Samantha Sun, ELECTRONIC VIDEO GAMES SERVICER-[facility] [address] [facility] [address] [place] [phone] Essential hypertension; Hypertension, unspecified type Social History [...] have Coronavirus / COVID-19? No / Unsure 11/26/2020 10:24 AM EDT documented as of this encounter Plan of Treatment Upcoming Encounters Date Type Department Care Team (Late Contact Info) Description 03/08/2025 9:00 AM EDT [facility] [address] [place] [address] Devendra Caputo DO 605 [facility], [address] [place] [address] 03/15/2025 5:15 PM EDT Appointment [facility] - MRI Imaging [address] [place] [address] 05/17/2025 2:30 PM EST Office Visit [facility] [address] [place] [address] [place] [phone] Eduardo Zazueta MD 605 [place] [address] documented as of this encounter Visit Diagnoses [...] documented as of this encounter Care Teams Bean Roaster Relationship Specialty Start Date End Date Eduardo Zazueta MD [address] [place] [address] [phone] PCP - General Internal Medicine 12/25/23 documented as of this encounter
--- OUTSIDE RECORDS SUMMARY | 2025-03-01 11:56 | XMS_ITS | Encounter Summary ---
Author Organization [employer] Address [facility] [id number] [address] [place] [address] Care Team Providers Care Cup Trimming Machine Operator Name Role Phone Eduardo Zazueta MD Primary Care Provider [phone] Encounter Details Date Type Department Care Team (Latest Contact Info) Description 02/19/2025 Travel Social History Tobacco Use Types Packs/Day Years Used Date Smoking Tobacco: Never Smokeless Tobacco: Never Alcohol Use Standard Drinks/Week Comments No 1 (1 standard drink = 0.6 oz pur e alcohol) [facility] Utilities Answer Date Recorded In the past [...] Description 03/08/2025 9:00 AM EDT Office Visit [facility] [address] [place] [address] [place] [phone] Devendra Caputo, DO 605 [facility], [address] [place], [place] [phone] 03/15/2025 5:15 PM EDT Appointment [facility] - MRI Imaging [address] [place] [address] 05/17/2025 2:30 PM EST Office Visit [facility] [address] [place] [address] [place] [phone] Eduardo Zazueta MD 605 [place], [place] [phone] documented as of this encounter Visit Diagnoses Not on filedocumented in this encounter Additional Health Concerns Assessment Noted Time PHQ-9 Depression Total Score: 0 02/20/20 25 3:08 PM EDT A Body Mass Index follow-up plan has been documented for the patient 06/08/2019 1:37 PM EST documented as of this encounter Care Teams Cup Trimming Machine Operator Relationship Specialty Start Date End Date Eduardo Zazueta MD 605 [place] [address] PCP - General Internal Medicine 12/25/23 documented as of this encounter
--- OUTSIDE RECORDS SUMMARY | 2025-03-01 11:56 | XMS_ITS | Encounter Summary ---
Author Organization [employer] Sys tem Address [id number] [address] [place] [address] Care Team Providers Care Inspector Health Care Facilities Name Role Phone Eduardo Zazueta MD Primary Care Provider [phone] Reason for Visit * Reason Comments Med Refill Encounter Details Date Type Department Care Team (Late st Contact Info) Description 08/22/2022 Refill [facility] [address] [place] [address] [place] [address] Samantha Sun, TURNING LATHE TENDER-[facility] [address] [place] [phone] Essential hypertension Social History Tobacco Use Types [...] Visit [facility] [address] [facility] [place] [address] Devendra Caputo, DO 605 [facility], [address] [place] [address]- 03/15/2025 5:15 PM EDT Appointment [facility] - MRI Imaging [address] [place] [address] 05/17/2025 2:30 PM EST Office Visit [facility] Family Medicine [address] [place] [address] Eduardo Zazueta MD 605 [facility] [place] [place] [address] documented as of this encounter Visit Diagnoses Diagnosis Essential hypertension Unspecified essential hypertension documented in this encounter Additional Health Concerns Assessment Noted Time PHQ-9 Depression Total Score: 0 06/08/20 19 1:00 PM EST A Body Mass Index follow-up plan has been documented for the patient 06/08/2019 1:37 PM EST documented as of this encounter Care Teams Inspector Health Care Facilities Relationship Specialty Start Date End Date Eduardo Zazueta MD 605 [facility] [place] [address] PCP - General Internal Medicine 12/25/23 documented as of this encounter
--- OUTSIDE RECORDS SUMMARY | 2025-03-01 11:56 | XMS_ITS | Encounter Summary ---
Author Organization [facility] Sys [facility] Address [facility] [place]-[id number] [address] [place] [address] Care Team Providers Care Hand Blocker Name Role Phone Eduardo Zazueta MD Primary Care Provider Reason for Visit * Reason Onset Date Comments referral 03/01/2025 Encounter Details Date Type Department Care Team (Late st Contact Info) Description 03/01/2025 [facility] [address] [place] [address] [address] [place] [address] Chuyita Martin CNA referral Social History Tobacco Use Types Packs/Day Years Used Date Smoking Tobacco: Never Smokeless Tobacco: Never Alcohol Use Standard Drinks/Week Comments No 1 (1 standard drink = 0.6 oz pur e alcohol) [facility] Utilities Answer Date Recorded In the [...] encounter Miscellaneous Notes * Telephone Encounter - Chuyita Martin CNA - 03/01/2025 10:27 AM EDT Patient called office stating that his body is killing him and dealing with headaches asking for a referral to [facility] Patient was very aggravated about this stated that we are killing him Please advise? * Telephone Encounter - Chuyita Martin CNA - 03/01/2025 10:27 AM EDT This was taken care of already. Patient ended up going to hospital * Telephone Encounter - Summer Gallo Haneyu - 03/01/2025 10:27 AM EDT Manager Travel made telephone call attempt to patient for more information after office received call. Spoke with patient for clarification. Patient stated he needed a referral to the [facility] . Whenasked what was going on, patient stated that his head hurts and he is not sure what is going on. Heis also having stomach and body pains. Manager Travel first reminded patient that he has a follow up as it pertains to his head pains next , mar 08. Also reminded patient that MRI of brain scheduled for 03/15/2025. Patient stated that he needed a referral to hospital right now because he cannot takethe pain and believes something is wrong. Manager Travel reminded patient that he does not need a referral to a hospital, that he is able to seek immediate care anytime at the hospital. When asked if patienthas a way of transportation, he stated that his cousin was on his way to his house now and will plan to take him to the [facility]. Patient plans to present to [facility] today. Notified patient that I would contact [facility] this afternoon for ER report. documented in this encounter Plan of Treatment Upcoming Encounters Date Type Department Care Team (Late st Contact Info) Description 03/08/2025 9:00 AM EDT Office Visit [facility] Family Medicine [address] [place] [phone] Devendra Caputo, [address] [place] [address], [address] [place] [address] 03/15/2025 5:15 PM EDT Appointment [facility] - MRI Imaging [address] [place] [address] 05/17/2025 2:30 PM EST Office Visit [facility] [address] [place] [phone] Eduardo Zazueta MD [address] [place] [address] documented as of this encounter Visit Diagnoses Not on filedocumented in this encounter Additional Health Concerns Assessment Noted Time PHQ-9 Depression Total Score: 0 02/20/20 25 3:08 PM EDT A Body Mass Index follow-up plan has been documented for the patient 06/08/2019 1:37 PM EST documented as of this encounter Care Teams Hand Blocker Relationship Specialty Start Date End Date Eduardo Zazueta MD [address] [place] [address] PCP - General Internal Medicine 12/25/23 documented as of this encounter
--- OUTSIDE RECORDS SUMMARY | 2025-03-01 11:56 | XMS_ITS | Encounter Summary ---
Author Organization [employer] Sys [employer] Address [facility] [place] [place][id number] [address] [place] [address] Care Team Providers Care Novelty Worker Name Role Phone Eduardo Zazueta MD Primary Care Provider [phone] Reason for Visit * Reason Onset Date Comments Med Refill 09/13/2018 Encounter Details Date Type Department Care Team (Late st Contact Info) Description 09/13/2018 Refill [facility] [address] [place] [phone] Samantha Sun, UTILIZATION MANAGEMENT MANAGER-[facility] [address] [facility] [address] [place], [place] [phone] Social History Tobacco Use Types Packs/Day Years [...] Office Visit [facility] [address] [place] [phone] Devendra Caputo, DO 605 [facility], [address], [facility] [place] [address] 03/15/2025 5:15 PM EDT Appointment [facility] - MRI Imaging [address] [place] [address] 05/17/2025 2:30 PM EST Office Visit [facility] Family Medicine [address] [place] [phone] Eduardo Zazueta MD [address] [place], [place] [phone] documented as of this encounter Visit Diagnoses Not on filedocumented in this encounter Additional Health Concerns Infection Onset Date Last Indicated Resolved Time COVID-19 Rule-Out 01/17/2022 01/17/2022 01/17/2022 3:46 PM EDT COVID-19 Positive 01/17/2022 01/17/2022 02/07/2022 11:12 PM EDT Assessment Noted Time PHQ-9 Depression Total Score: 1 03/22/20 18 3:00 PM EDT documented as of this encounter Care Teams Novelty Worker Relationship Specialty Start Date End Date Eduardo Zazueta MD 605 [place], [place] [phone] PCP - General Internal Medicine 12/25/23 documented as of this encounter
[2025-03-01 12:46] LABS: Hematocrit 40.0 % (42.0-54.0); Hemoglobin 13.2 g/dL (14.0-18.0); Immature Granulocytes Abs Auto 0.02 10^3/uL (0.00-0.03); Immature Granulocytes Pct Auto 0.3 % (0.0-0.5); Lymphocytes Absolute Auto 1.2 10^3/uL (1.2-3.8); Mean Corpuscular HGB Conc 33.0 g/dL (29.9-35.2); Mean Corpuscular Hemoglobin 32.0 pg (25.9-34.0); Mean Corpuscular Volume 96.9 fL (80.0-94.0); Platelet Count 187 10^3/uL (150-450); Red Blood Count 4.13 10^6/uL (4.70-6.10); White Blood Count 6.2 10^3/uL (4.0-11.0)
[2025-03-01] MEDS: 0.9 % SODIUM CHLORIDE 1,000 ML 1000 ML IV (12:51)
[2025-03-01] MEDS: KETOROLAC TROMETHAMINE 30 MG/ML VIAL 15 MG IVP (12:52)
[2025-03-01] MEDS: DIPHENHYDRAMINE HCL 50 MG/ML VIAL 25 MG IVP (12:52)
[2025-03-01] MEDS: PROCHLORPERAZINE 10 MG/2 ML VIAL 5 MG IV (12:52)
[2025-03-01] MEDS: METHYLPREDNISOLONE SOD SUCC PF 125 MG/2 ML VIAL IVP (12:52)
[2025-03-01 12:55] LABS: Anion Gap 10.2; Blood Urea Nitrogen 14.0 mg/dL (7.0-18.0); Calcium 9.6 mg/dL (8.5-10.1); Carbon Dioxide 27.9 mmol/L (21.0-32.0); Chloride 106 mmol/L (98-107); Estimated GFR (African America >60 (>=60 mL/min/1.73m^2); Estimated GFR (Non-African Ame 52 (>=60 mL/min/1.73m^2); Glucose 85 mg/dL (74-106); Magnesium 2.1 mg/dL (1.8-2.4); Potassium 4.1 mmol/L (3.5-5.1); Sodium 140 mmol/L (136-145)
--- NOTE | 2025-03-01 13:10 | ED.GENADUL1 ---
HPI HPI - General Adult General Chief complaint: Headache Stated complaint: HEADACHE Time Seen by Provider: 03/01/25 12:08 Source: patient Mode of arrival: walk-in History of Present Illness HPI narrative: Patient presents to the ED with a complaint of a chronic frontal headache, present for several months. Describes the pain as a tight band across the frontal aspect of his head, constant but sometimes worsening during the day. He occasionally takes ibuprofen for relief. Denies neck pain, dizziness, lightheadedness, ear pain, runny nose, sore throat, chest pain, or shortness of breath. 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 Denies pain in the temples. Patient is concerned about a brain tumor or dementia, but denies episodes of confusion or memory loss. Scheduled for follow-up with primary care in May but sought ED evaluation for earlier assessment. Related Data Home Medications ?Medication ?Instructions ?Recorded ?Confirmed carvedilol 3.125 mg tablet 3.125 mg PO Q12H 03/01/25 03/01/25 finasteride 5 mg tablet 5 mg PO DAILY 03/01/25 03/01/25 tamsulosin 0.4 mg capsule 0.4 mg PO Q24H 03/01/25 03/01/25 Allergies Allergy/AdvReac Type Severity Reaction Status Date / Time No Known Drug Allergies Allergy Verified 03/01/25 11:49 Opioid HPI Opioid Management Most Recent Opioid Data: Last Pain Scale 2 Today, 12:00 PFSH PFSH Social History Little interest or pleasure in doing things: not at all Feeling down, depressed, or hopeless: not at all Exam Narrative Exam Narrative: General: Patient appears well, in no acute distress. Alert and oriented ?3. Vital Signs: Stable. Within normal limits. Head: Normocephalic, atraumatic. Eyes: In regard to the left eye PERRLA (pupils equal, round, reactive to light and accommodation). EOMI (extraocular movements intact). Conjunctiva clear, sclera anicteric. Right eye he has chronic blindness prior to headache. The cornea is cloudy. He denies any change in his baseline with this. Ears/Nose/Throat: TMs clear bilaterally. Nasal passages patent. Oropharynx clear, mucous membranes moist. Neck: Supple. No lymphadenopathy. Trachea midline. Cardiovascular: Regular rate and rhythm. Normal S1 and S2. No murmurs, rubs, or gallops. Peripheral pulses intact and symmetric. No edema. Respiratory: Lungs clear to auscultation bilaterally. No wheezes, rales, or rhonchi. Normal respiratory effort. Abdomen: Soft, non-tender, non-distended. Normoactive bowel sounds. No hepatosplenomegaly. No rebound or guarding. Musculoskeletal: Normal range of motion. No deformity, swelling, or tenderness. Normal strength. Skin: Warm, dry, intact. No rashes or lesions. Good turgor. Neurological: Cranial nerves II?XII grossly intact. Strength 5/5 in all extremities. Sensation intact. Reflexes 2+ and symmetric. Gait normal. Psychiatric: Mood and affect appropriate. Normal judgment and insight. Constitutional Vital Signs, click to edit/add: Last Vital Signs Temp 97.4 F L 03/01/25 11:51 Pulse 65 03/01/25 11:51 Resp 16 03/01/25 11:51 BP 140/84 03/01/25 11:51 Pulse Ox 96 03/01/25 11:51 O2 Del Method Room Air 03/01/25 11:51 Course Reevaluation(s) Reevaluation #1: ED Course / Reevaluation: Patient was treated with IV Toradol, Solu-Medrol, Compazine, and Benadryl with complete resolution of headache. Pain now 0/10. Patient remains hemodynamically stable, neurologically intact, and comfortable. Imaging: CT head: No acute intracranial abnormality. Assessment/Plan: Headache, resolved with ED therapy. Workup reassuring with normal CT head. No focal neurological deficits. Patient counseled on return precautions, including worsening or recurrent headache, vision changes, weakness, numbness, fever, neck stiffness, or confusion. Recommended follow-up with primary care for ongoing management and monitoring. Patient stable and appropriate for discharge at this time. Time: 15:39 Vital Signs Vital signs: Vital Signs Temperature 97.4 F L 03/01/25 11:51 Pulse Rate 65 03/01/25 11:51 Respiratory Rate 16 03/01/25 11:51 Blood Pressure 140/84 03/01/25 11:51 Pulse Oximetry 96 03/01/25 11:51 Oxygen Delivery Method Room Air 03/01/25 11:51 Temperature 97.4 F L 03/01/25 11:51 Pulse Rate 65 03/01/25 11:51 Respiratory Rate 16 03/01/25 11:51 Blood Pressure 140/84 03/01/25 11:51 Pulse Oximetry 96 03/01/25 11:51 Oxygen Delivery Method Room Air 03/01/25 11:51 Medical Decision Making MDM Narrative Medical decision making narrative: 76-year-old patient presents with chronic frontal headache, described as a tight band, present for several months. Examination is reassuring with no focal neurological deficits aside from chronic right eye blindness. Differential includes tension-type headache, migraine, and, less likely, temporal arteritis or intracranial mass. Non-contrast CT head is normal, ruling out acute intracranial pathology. Labs pending for routine evaluation and to assess for possible inflammatory markers given age and headache chronicity. Patient was counseled on the limitations of ED evaluation for chronic headaches and cognitive concerns, and symptomatic treatment was provided with improvement in pain. Patient is hemodynamically stable, neurologically intact, and appropriate for discharge with follow-up with primary care or neurology. Return precautions were reviewed for sudden or severe headache, new neurological deficits, vision changes, or confusion. Medical Records Medical records reviewed: Yes I reviewed the patient's medical records Lab Data Lab results reviewed: Yes I reviewed the patient's lab results Labs: Lab Results 03/01/25 Range/Units 12:37 WBC 6.2 (4.0-11.0) 10^3/uL RBC 4.13 L (4.70-6.10) 10^6/uL Hgb 13.2 L (14.0-18.0) g/dL Hct 40.0 L (42.0-54.0) % MCV 96.9 H (80.0-94.0) fL MCH 32.0 (25.9-34.0) pg MCHC 33.0 (29.9-35.2) g/dL RDW 12.4 (11.0-15.0) % Plt Count 187 (150-450) 10^3/uL MPV 9.3 L (9.5-13.5) fL Neut % (Auto) 67.0 (43.0-75.0) % Lymph % (Auto) 18.8 L (20.5-60.0) % Graham % (Auto) 10.5 (1.7-12.0) % Eos % (Auto) 2.9 (0.9-7.0) % Baso % (Auto) 0.5 (0.2-2.0) % Neut # (Auto) 4.1 (1.4-6.5) 10^3/uL Lymph # (Auto) 1.2 (1.2-3.8) 10^3/uL Graham # (Auto) 0.7 (0.3-0.8) 10^3/uL Eos # (Auto) 0.2 (0.0-0.7) 10^3/uL Baso # (Auto) 0.0 (0.0-0.1) 10^3/uL Abs Immat Gran (auto) 0.02 (0.00-0.03) 10^3/uL Imm/Tot Granulo (auto) 0.3 (0.0-0.5) % ESR 33 H (<=20) mm/hr Sodium 140 (136-145) mmol/L Potassium 4.1 (3.5-5.1) mmol/L Chloride 106 (98-107) mmol/L Carbon Dioxide 27.9 (21.0-32.0) mmol/L Anion Gap 10.2 BUN 14.0 (7.0-18.0) mg/dL Creatinine 1.34 H (0.70-1.30) mg/dL Est GFR ( Amer) >60 (>=60 mL/min/1.73m^2) Est GFR (Non-Af Amer) 52 L (>=60 mL/min/1.73m^2) BUN/Creatinine Ratio 10.4 Glucose 85 (74-106) mg/dL Calcium 9.6 (8.5-10.1) mg/dL Magnesium 2.1 (1.8-2.4) mg/dL C-Reactive Protein <0.50 (<=0.50) mg/dL Discharge Plan Discharge Chief Complaint: Headache Clinical Impression: Headache Patient Disposition: Home, Self-Care Prescriptions / Home Meds: No Action carvedilol 3.125 mg tablet 3.125 mg PO Q12H finasteride 5 mg tablet 5 mg PO DAILY tamsulosin 0.4 mg capsule 0.4 mg PO Q24H Print Language: Bhutanese Instructions: Tension Headache (ED) Additional Instructions: You were evaluated in the ED for your headache. Imaging normal, Labs showed mild elevation in creatine and mild anemia, and no serious problems were found. Your headache has improved with treatment today. Continue to rest, stay hydrated, and use [id number] pain medications as needed. Return to the ED immediately if you develop a sudden or severe headache, weakness, numbness, vision changes, confusion, difficulty speaking, fever, or neck stiffness. Follow up with your primary care provider or neurologist for ongoing headache management. Referrals: Devendra Caputo DO [Primary Care Provider] - 1 week Discharge Date/Time: 03/01/25 16:05
== END 2025-03-01 16:05 | disposition home or self-care (01) ==
PROVIDERS: Physician Assistant; Emergency Provider Emergency Medicine; PCP Family Medicine
DX: R51.9 Headache, unspecified (principal); H54.61 Unqualified visual loss, right eye, normal vision left eye
CPT/HCPCS: 36415; 70450; 80048; 83735; 85025; 85652; 86140; 96374; 96375; 99285; J0780; J1200; J1885; J2919